=== PATIENT | male | born 1950 | race Caucasian/White ===

== ENCOUNTER → 2017-04-12 | Outpatient (CLI) | payer OTHER ==
[~2017-04-12] MED LIST: ASPI81TA21 PO; CHOL100027 PO; CLC100X PO; CMD/25 PO; FERR324T PO; FEXO1TAB46 PO; FISHOIL PO; FLAXSEED PO; GARLTAB3 PO; MULTIVITAMIN; SENN8.6T2 PO
--- NOTE | 2017-04-12 08:54 | DIAGNOSTIC IMAGING REPORT ---
LEFT FINGER(S) MIN 2 VIEWS CLINICAL HISTORY: LEFT 1ST DIGIT PAIN COMPARISON: Left first digit radiographs April 09, 2013. FINDINGS: Alignment of the left thumb is anatomic. There is no fracture or suspicious lesion. There is moderate to severe arthritis of the left first carpometacarpal joint. There is mild osteoarthritis of the interphalangeal and metacarpophalangeal joints of the left thumb. IMPRESSION: 1. No acute fracture. 2. 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 Electronically signed by: Darvin Brandon M.D. 04/12/2017 8:52 AM Dictated Date/Time: 04/12/2017 8:50 AM
--- NOTE | 2017-04-12 08:55 | DIAGNOSTIC IMAGING REPORT ---
RIGHT FINGER(S) MIN 2 VIEWS CLINICAL HISTORY: Bilateral thumb pain. COMPARISON: Right thumb radiographs April 09, 2013. FINDINGS: Alignment of the right thumb is anatomic. There is moderate osteoarthritis of the right first carpometacarpal joint and mild arthritis of the right first metacarpophalangeal and interphalangeal joints. There is no acute fracture. IMPRESSION: Moderate osteoarthritis of the right first carpometacarpal joint and mild arthritis of the interphalangeal and metacarpophalangeal joints of the right thumb. Electronically signed by: Darvin Brandon M.D. 04/12/2017 8:53 AM Dictated Date/Time: 04/12/2017 8:52 AM
== END | disposition home or self-care (01) ==
LOC: C.RDSM 08:39
PROVIDERS: ATTEND Physician Assistant
DX: M19.041 Primary osteoarthritis, right hand (principal); M19.042 Primary osteoarthritis, left hand; M18.0 Bilateral primary osteoarthritis of first carpometacarpal joints

== ENCOUNTER → 2017-05-10 | Outpatient (CLI) | payer OTHER ==
--- NOTE | 2017-05-10 09:41 | DIAGNOSTIC IMAGING REPORT ---
PELVIS 1 OR 2 VIEWS CLINICAL HISTORY: 66 years-old Male presenting with bilateral hip pain for 1 month, no known injury. TECHNIQUE: Single frontal view of the pelvis was obtained. COMPARISON: None. FINDINGS: An implanted medical anthropology director projects over the right lower quadrant. Bilateral hip joints congruent. No evidence of acute fracture or subluxation. No significant degenerative change or joint space loss is evident. Sacroiliac joints normal-appearing. Arcuate lines intact. Pubic symphysis congruent. Atherosclerosis is suggested. Remaining soft tissues within normal limits. IMPRESSION: No significant osseous abnormality of the pelvis. Electronically signed by: Jeff Morris M.D. 05/10/2017 9:40 AM Dictated Date/Time: 05/10/2017 9:38 AM
== END | disposition home or self-care (01) ==
LOC: C.RDSM 08:56
PROVIDERS: ATTEND Physician Assistant
DX: R10.2 Pelvic and perineal pain (principal)

== ENCOUNTER → 2017-08-09 | Outpatient (CLI) | payer OTHER | END | disposition home or self-care (01) | LOC: C.RDSM 07:30 | PROVIDERS: ATTEND Orthopaedic Surgery | DX: M25.551 Pain in right hip (principal); M25.552 Pain in left hip ==

== ENCOUNTER → 2018-01-03 | Outpatient (CLI) | payer OTHER ==
[~2018-01-03] MED LIST changes: +ALLO100T PO; +ASPI-319 PO; -ASPI81TA21 PO; +COEN1CAP32 PO; +FLAX1CAP11 PO; +GARL10007 PO; +METO25TA3 PO; +MULT-506 PO; +OMEG10007 PO; +RANI1TAB77 PO; +ROSU5TAB PO
== END | disposition home or self-care (01) ==
LOC: C.RDSM 13:36
PROVIDERS: ATTEND Orthopaedic Surgery
DX: M18.9 Osteoarthritis of first carpometacarpal joint, unspecified (principal)

== ENCOUNTER → 2018-01-30 | Day surgery (SDC) | payer OTHER ==
[2018-01-12 10:59] VITALS: Ht 180.3 cm; Wt 117.3 kg
[~2018-01-30] VITALS: Ht 180.3 cm; Wt 117.3 kg
[~2018-01-30] MED LIST changes: +ATROPINE SULFATE 0.1 MG/ML 5ML SYR IV PRN; -CHOL100027 PO; -CLC100X PO; +CLINDAMYCIN IV 900 MG in DEXTROSE 5% 50ML 44 ML IV SCH; +CLINDAMYCIN PHOS 150 MG/ML 2 ML VIAL ONE; -CMD/25 PO; +DEXAMETHASONE SOD INJ 4 MG/ML VIAL ONE; +EpHEDrine SULFATE INJ 50 MG/ML AMP IV PRN; +FENTANYL CITRATE INJ 50 MCG/1 ML 2 ML VIAL ONE; -FERR324T PO; -FEXO1TAB46 PO; -FISHOIL PO; -FLAXSEED PO; +FLUMAZENIL 0.1 MG/1 ML 10 ML VIAL IV PRN; -GARLTAB3 PO; +HYDROmorphone INJ 0.5 MG/0.5 ML SYR IV PRN; +LABETALOL HCL IV 5 MG/ML 20ML IV PRN; +LACTATED RINGER'S 1000ML 1,000 ML IV SCH; +LIDOCAINE HCL 2% 2 ML VIAL (20MG/ML) ONE; +METOCLOPRAMIDE HCL INJ 5 MG/ML 2 ML VIAL IV PRN; +MIDAZOLAM HCL 1 MG/ML 2ML VIAL ONE; -MULTIVITAMIN; +NALOXONE HCL 0.4 MG/1 ML VIAL/CARP IV PRN; +ONDANSETRON INJ 2 MG/ML 2 ML VIAL IV PRN; +ONDANSETRON INJ 2 MG/ML 2 ML VIAL ONE; +OXYCODONE/ACETAMINOPHEN 5-325 TAB PO PRN; +PROPOFOL IV EMULSION 10 MG/ML 20 ML VIAL ONE; +ROPIVACAINE 0.5% 5 MG/ML 30 ML VIAL ONE; -SENN8.6T2 PO; +SODIUM CHLORIDE 0.9% 1000ML 1,000 ML IV SCH; +SODIUM CHLORIDE 0.9% INJ 10 ML VIAL ONE; +THROMBIN 5000 UNITS KIT ONE; +TRANEXAMIC ACID 100 MG/ML 10 ML AMP IV ONE; +TRANEXAMIC ACID INJ 1,000 MG in SODIUM CHLORIDE 0.9% 100ML 100 ML IV SCH
--- NOTE | 2018-01-30 06:39 | History & Physical Bridge - [place] ---
H&P Re-Evaluation Bridge Note: I have examined the patient, reviewed the History & Physical and in the interval since the performance of the History & Physical I have noted the following changes of clinical significance: No changes noted
--- NOTE | 2018-01-30 08:49 | [facility] Post Operative Brief Note ---
Immediate Operative Summary Operative Date January 30, 2018. Pre-Operative Diagnosis Left Thumb Carpometacarpal Arthritis Post-Operative Diagnosis Same Procedure(s) Performed Left Thumb CarpoMetaCarpal Arthroplasty With Palmaris Longus Autograft Ligament Reconstruction Tendon Interposition Surgeon Dr. Nguyen Program Coordinator Executive Education Surgeon(s) Chaka Bose PA-C Estimated Blood Loss 10 ML Findings Consistent with Post-Op Diagnosis Fluids (cc crystalloids) 700 cc Specimens None Anesthesia Type General Regional Disposition Accompanied Pt To Recover: no Disposition: Recovery Room / PACU Overlapping Procedure I was present for: the critical portions of procedure. I was immediately available: during the entire case Back up surgeon: was not required during procedure
--- NOTE | 2018-01-30 08:51 | [facility] Operative Report ---
Operative Report Operative Date January 30, 2018. Pre-Operative Diagnosis Left Thumb Carpometacarpal Arthritis Post-Operative Diagnosis Same Procedure(s) Performed Left Thumb CarpoMetaCarpal Arthroplasty With Palmaris Longus Autograft Ligament Reconstruction Tendon Interposition Surgeon Dr. Nguyen Telemetry Registered Nurse Surgeon(s) Chaka Bose PA-C Estimated Blood Loss 10 ML Fluids 700 cc Specimens None Drains None Anesthesia Type General Regional Complication(s) none Disposition no Recovery Room / PACU Description of Procedure I was present during entire procedure. Please see Dr. Nguyen note for specifics of case. I attest to the content of the Intraoperative Record and any orders documented therein. Any exceptions are noted below.
--- NOTE | 2018-01-30 08:56 | Discharge Instructions ---
Discharge Instructions Date of Service January 30, 2018. Admission Reason for Admission: Left Thumbe Carpometacarpal Arthritis Discharge Discharge Diagnosis / Problem: Left thumb carpometacarpal arthritis Discharge Goals Goal(s): Decrease discomfort, Improve function, Increase independence Activity Recommendations Activity Limitations: as noted below Lifting Limitations: until after follow-up appointment (No lifting with left hand until instructed ) Exercise/Sports Limitations: until after follow-up appointment May Resume Sexual Activity: when tolerated Shower/Bathe: tomorrow, keep incision dry Driving or Machine Use: until cleared by child and family services specialist Weightbearing Status: Left non-weightbearing (Upper extremity) . Instructions / Follow-Up Instructions / Follow-Up Post-operative Instructions Dear Patient and Family/Friends, Before you are discharged from the hospital, it is important to know what to expect when you get home after surgery. To that end, we have created this sheet of discharge instructions which covers many commonly asked questions. Make sure you go through this sheet in its entirety with your nurse before you are discharged. Please note that we will go over the specifics of your surgery and recovery when you return for your first post-operative visit. Sincerely, Dr. Nguyen Pain Expect to be in a fair amount of pain after surgery. Remember, our goal is not to eliminate your pain, but to make it tolerable. It is a good idea to stay ahead of your pain by taking the medications you were prescribed once you get home. Typically, the pain starts improving 3-7 days after surgery. You should start weaning off the narcotic pain medication (oxycodone, hydrocodone, hydromorphone, morphine) as soon as your pain improves. Please call our office if your pain is not adequately controlled. Ice Ice your operative site at least 5 times a day for 15-30 minutes at a time. Make sure you have a thin cloth between the ice or cooling unit and your skin to prevent ontiveros bite. This is especially important if you received a nerve block. Continue icing your operative site for the first 5-7 days after surgery , then as needed. Diet/Nausea/Vomiting Start by drinking clear liquids and eating crackers. If you can tolerate this, then you may resume your normal diet. If you feel nauseated or vomit, take Zofran/ondansetron (if prescribed). Please call our office if you have intractable nausea or vomiting, or, if after hours, you may go to the Emergency Room for help. Constipation Constipation is a common side effect of narcotic pain medication. If you have not had a bowel movement within 2 days after surgery, we recommend purchasing an over the counter laxative such as Milk of Magnesia, Dulcolax, or Miralax from a local pharmacy, and taking it as instructed. Call our clinic if any questions. Slings and Braces If you were placed in a sling or brace, it must be worn at all times, including sleep. You may remove your sling or brace for physical therapy, home exercises , and showering. The length of time you will be in your brace and range of motion restrictions depends on what surgery you had; these details will be reviewed at your first post-operative appointment. Nerve block The anesthesia team sometimes places a nerve block to help with post-operative pain control. This results in significant numbness and inability to move the extremity. The nerve block usually wears off in 8-12 hours, but sometimes can last up to 24 hours. Please call our office if you are still unable to move your extremity after 24 hours, unless you received a pain pump to take home. Nerve blocks typically wear off quickly, so start taking pain medication as soon as you start feeling soreness near your surgical site. Weight bearing and Range of Motion. Do not bear any weight through your operative extremity immediately after surgery. If you had upper extremity surgery, do not lift anything with that arm. If you are in a knee brace, keep it locked in place until your follow-up. We will discuss your weight bearing, range of motion, and lifting restrictions in detail at your first post-operative appointment. Continuous Passive Motion (CPM) Machine If you were prescribed a CPM machine, it will start after your first post- operative appointment, at which time we will give you instructions on the range of motion settings and duration of treatment Physical therapy You will be given a prescription for physical therapy or occupational therapy at your first post-operative appointment. Typically, patients start therapy within 1 week of surgery Wound care and showering We will inspect your wound at your first post-operative visit, and may do a dressing change at that time. Most patients will be in a water-proof dressing that is removed 14 days after surgery. It is normal to see some dried blood on the dressing. Do not remove your dressing, paper strips or sutures yourself unless you are given permission. Showering is allowed the day after surgery. Do not scrub or remove any dressings. The wound should not be submerged underwater (i.e. in a bathtub or pool) until 4 weeks after surgery EMILY stockings If you were given white stockings, these are to be worn at all times except to shower (on both legs) for the first 2 weeks after surgery. Driving You may not drive while taking narcotic pain medication or while in a cast, splint, sling or brace. You, the patient, need to make the final determination about when you are safe to drive, however, the earliest you may consider driving after surgery is below: Hand/Wrist/Elbow Surgery: 3 days Shoulder Surgery: 2 weeks Hip,/Knee/Ankle Surgery: 4 weeks Fracture repair: 6 weeks Return to Work Your return to work depends on what surgery was done and what type of work you do. Please bring any paperwork your employer needs completed to your first post -operative visit. Also, bring a description of your job duties, as this helps us to understand what risks you may face at work. Travel Avoid long distance travel (greater than 1 hour) in airplanes and cars for the first 6 weeks after surgery. If you must travel, you need to have a Doppler ultrasound done before you travel to rule out a blood clot in your legs. Follow-up You should have a follow-up appointment already scheduled 1-2 days after surgery. If not, please contact our office to make this appointment before you leave the hospital. When to call the office It is normal to have swelling and bruising in the limb that was operated on. This will improve with time. It is also normal to have fevers for the first 2 days after surgery. Reasons you should call your doctor include: Uncontrolled pain; Nausea, vomiting, or constipation that does not improve with medication; Fevers over 101.5, chills, sweats; Drainage or bleeding from the wound; Foul odor; Spreading areas of redness; Any other concerns Current Hospital Diet Patient's current hospital diet: Discharge Diet Recommended Diet: Regular Diet Procedures Procedures Performed: Left Thumb CarpoMetaCarpal Arthroplasty With Palmaris Longus Autograft Ligament Reconstruction Tendon Interposition Pending Studies Studies pending at discharge: no Medical Emergencies . Who to Call and When: Medical Emergencies: If at any time you feel your situation is an emergency, please call 911 immediately. . Non-Emergent Contact Non-Emergency issues call your: Primary Care Provider Call Non-Emergent contact if: you have a fever, temperature is above 101.5, your pain is not controlled, your pain is worsening, wound has increased drainage, you have any medication questions . "Provider Documentation" section prepared by Alfonzo Bose. . [place] Drug Monitoring Program Search Results: patient reviewed within database, no issues identified, see additional documentation
[2018-01-30 09:42] VITALS: TEMP 36
--- NOTE | 2018-01-30 09:53 | Anesthesia Progress Nt - [facility] ---
Anesthesia Post Op Note Date & Time January 30, 2018 at 09:53 Vital Signs Pain Intensity: 8 Vital Signs Past 12 Hours Date Time Temp Pulse Resp B/P (MAP) Pulse Ox O2 Delivery O2 Flow Rate FiO2 01/30/18 09:42 36.0 57 18 176/84 (114) 96 Room Air 01/30/18 09:26 36.2 153/85 (122) 01/30/18 09:24 55 11 01/30/18 09:24 54 11 93 01/30/18 09:21 154/88 (107) 01/30/18 09:19 54 9 01/30/18 09:19 54 9 94 01/30/18 09:16 169/87 (111) 01/30/18 09:15 Room Air 01/30/18 09:14 62 12 97 01/30/18 09:14 60 12 01/30/18 09:11 163/86 (112) 01/30/18 09:09 59 16 01/30/18 09:09 61 16 96 01/30/18 09:06 179/87 (107) 01/30/18 09:04 60 14 84 01/30/18 09:04 29 14 01/30/18 09:01 118/103 (113) 01/30/18 08:59 65 12 01/30/18 08:59 66 12 98 01/30/18 08:56 171/95 (132) 01/30/18 08:54 70 17 01/30/18 08:54 70 17 94 01/30/18 08:52 165/90 (116) 01/30/18 08:49 36.1 70 16 165/90 96 Diffusion Mask 5 01/30/18 07:07 56 01/30/18 07:07 55 17 100 01/30/18 07:06 163/87 01/30/18 07:03 57 01/30/18 07:03 57 15 100 01/30/18 07:01 169/91 01/30/18 06:58 58 01/30/18 06:58 58 13 100 01/30/18 06:56 174/84 01/30/18 06:55 196/94 01/30/18 06:53 60 01/30/18 06:53 60 0 99 01/30/18 06:48 57 0 98 01/30/18 06:48 58 01/30/18 06:43 65 0 01/30/18 06:30 36.6 57 18 162/92 (115) 97 Room Air Notes Mental Status: alert / awake / arousable, participated in evaluation Pt Amnestic to Procedure: Yes Nausea / Vomiting: adequately controlled Pain: adequately controlled Airway Patency, RR, SpO2: stable & adequate BP & HR: stable & adequate Hydration State: stable & adequate Anesthetic Complications: no major complications apparent
--- NOTE | 2018-01-30 10:02 | OPERATIVE REPORT ---
DATE OF OPERATION: 01/30/2018 PREOPERATIVE DIAGNOSIS: Left CMC joint arthritis. POSTOPERATIVE DIAGNOSIS: Same. OPERATION PERFORMED: Left thumb CMC arthroplasty with palmaris longus autograft, ligament reconstruction, tendon interposition. SURGEON: Jeff Nguyen MD PIPED POCKET MACHINE OPERATOR: Chaka Bose. ESTIMATED BLOOD LOSS: 10 mL. IV FLUIDS: 700 mL crystalloid. IMPLANTS: None. SPECIMENS: None. COMPLICATIONS: None. INDICATIONS: Mr. Schroeder is a 67-year-old male who has had pain at the base of his left thumb. This has been refractory to conservative management including steroid injections, splinting, activity modification and others. X-rays were obtained demonstrating subluxation of the thumb metacarpal on the trapezium with joint space narrowing and osteophyte formation consistent with end-stage osteoarthritis. I had a long discussion with him about the risks and benefits of surgery, alternatives to surgery and expected outcomes. After reviewing all these, he elected to proceed with surgery. All questions were answered. Informed consent was signed. OPERATIVE FINDINGS: The patient had significant degenerative changes at the CMC joint with subluxation and peripheral osteophyte formation. The trapezium was excised and his volar ligament was reconstructed using palmaris longus autograft. DESCRIPTION OF THE OPERATION: The patient was identified in the preoperative holding area where the surgical site was marked. He was given a block by anesthesia and brought back to main operating room, was placed on the operating room table and general anesthesia was administered. All bony prominences were padded. Perioperative antibiotics were administered. He was prepped and draped in the normal sterile fashion. Prior to incision, a multidisciplinary timeout was called. All in the room were in agreement. I began by exsanguinating the limb with an Esmarch bandage. The tourniquet was inflated to 250 mmHg. An L-shaped incision was made along the junction of the glabrous palmar skin and the dorsal skin along the radial aspect of the thumb with the shorter leg of the L at the distal wrist crease for a total incision length of 4 cm. We dissected through the subcutaneous tissues maintaining meticulous hemostasis as he has a port-wine stain on this arm. We then identified a branch of the superficial radial nerve which was dissected out and protected throughout the case. We then incised between the abductor pollicis longus and the extensor pollicis brevis tendons. The radial artery was identified at the base of the wound and was protected throughout the case. We then incised through the capsule overlying the trapezium and subperiosteally dissected out the trapezium. The trapezium was then removed using a rongeur. The FCR was identified at the base of the wound. Next, the base of the thumb metacarpal was dissected subperiosteally to allow for a drill tunnel to be placed. A small slip of the APL was dissected off with this as well. We then harvested his palmaris longus through a 1 cm long incision at the proximal wrist crease. The tendon stripper was used to release the tendon proximally. The tendon was repaired with a knot in the muscular end which was secured with a 3-0 Ti-Cron. A drill hole was then placed through the base of the thumb metacarpal through which the tendon was passed. It was then looped around a slip of the APL as well as the FCR to create a spring type of configuration as well as reconstruct the volar oblique ligament of the thumb. The tendon was then sutured to itself with a 3-0 Ethibond. The slip of the APL was released, was sutured back to the tendinous knot at the base of the thumb metacarpal at its anatomic insertion. The capsule was then closed over the top of the ligament reconstruction tendon interposition using 3-0 Ti-Cron sutures. At this point, the tourniquet was let down. Meticulous hemostasis was again achieved. The skin was then closed with 4-0 nylon sutures in horizontal mattress fashion. He was placed into a radial thumb spica plaster splint with the thumb held in a resting naturally abducted position. He was then awoken from anesthesia and transferred to the recovery room in stable condition. POSTOPERATIVE COURSE: The patient will be discharged home from the recovery room. He will elevate his arm. He will be nonweightbearing on the left upper extremity for 6 weeks. He will transition to a removable thumb spica splint at his 2-week followup appointment, which he will wear for the subsequent 4-6 weeks. I attest to the content of the Intraoperative Record and any orders documented therein. Any exceptions are noted below. ANUEL
[2018-01-30 10:09] VITALS: BP 167/93; PULSE 61; O2SAT 96
== END | disposition home or self-care (01) ==
LOC: X.SURG 06:15
PROVIDERS: ATTEND Orthopaedic Surgery
DX: M18.12 Unilateral primary osteoarthritis of first carpometacarpal joint, left hand (principal); I25.10 Atherosclerotic heart disease of native coronary artery without angina pectoris; I71.4 Abdominal aortic aneurysm, without rupture; Z95.5 Presence of coronary angioplasty implant and graft; Z96.653 Presence of artificial knee joint, bilateral; K21.9 Gastro-esophageal reflux disease without esophagitis; M10.9 Gout, unspecified; I10 Essential (primary) hypertension; M54.5 Low back pain; G89.29 Other chronic pain; Z82.49 Family history of ischemic heart disease and other diseases of the circulatory system; Z83.3 Family history of diabetes mellitus; Z88.1 Allergy status to other antibiotic agents; Z79.82 Long term (current) use of aspirin; Z88.0 Allergy status to penicillin; Z87.891 Personal history of nicotine dependence

== ENCOUNTER → 2018-04-05 | Outpatient (CLI) | payer OTHER ==
[~2018-04-05] MED LIST changes: -ATROPINE SULFATE 0.1 MG/ML 5ML SYR IV PRN; -CLINDAMYCIN IV 900 MG in DEXTROSE 5% 50ML 44 ML IV SCH; -CLINDAMYCIN PHOS 150 MG/ML 2 ML VIAL ONE; -DEXAMETHASONE SOD INJ 4 MG/ML VIAL ONE; -EpHEDrine SULFATE INJ 50 MG/ML AMP IV PRN; -FENTANYL CITRATE INJ 50 MCG/1 ML 2 ML VIAL ONE; -FLUMAZENIL 0.1 MG/1 ML 10 ML VIAL IV PRN; -HYDROmorphone INJ 0.5 MG/0.5 ML SYR IV PRN; -LABETALOL HCL IV 5 MG/ML 20ML IV PRN; -LACTATED RINGER'S 1000ML 1,000 ML IV SCH; -LIDOCAINE HCL 2% 2 ML VIAL (20MG/ML) ONE; -METOCLOPRAMIDE HCL INJ 5 MG/ML 2 ML VIAL IV PRN; -MIDAZOLAM HCL 1 MG/ML 2ML VIAL ONE; -NALOXONE HCL 0.4 MG/1 ML VIAL/CARP IV PRN; -ONDANSETRON INJ 2 MG/ML 2 ML VIAL IV PRN; -ONDANSETRON INJ 2 MG/ML 2 ML VIAL ONE; -OXYCODONE/ACETAMINOPHEN 5-325 TAB PO PRN; -PROPOFOL IV EMULSION 10 MG/ML 20 ML VIAL ONE; -ROPIVACAINE 0.5% 5 MG/ML 30 ML VIAL ONE; -SODIUM CHLORIDE 0.9% 1000ML 1,000 ML IV SCH; -SODIUM CHLORIDE 0.9% INJ 10 ML VIAL ONE; -THROMBIN 5000 UNITS KIT ONE; -TRANEXAMIC ACID 100 MG/ML 10 ML AMP IV ONE; -TRANEXAMIC ACID INJ 1,000 MG in SODIUM CHLORIDE 0.9% 100ML 100 ML IV SCH
--- NOTE | 2018-04-05 08:19 | DIAGNOSTIC IMAGING REPORT ---
R FINGER(S) MIN 2 VIEWS HISTORY: 67 years-old Male RIGHT THUMB PAIN acute pain of the right thumb COMPARISON: None available TECHNIQUE: 3 views of the right thumb FINDINGS: Moderate to severe osteoarthritis about the first carpal metacarpal joint. Triscaphe degenerative changes are also present. 3 mm corticated bone fragment lateral to the mid pole scaphoid suggests remote fracture fragment or fragmented osteophyte. At least moderate joint space narrowing with osteophytosis involves the second metacarpal phalangeal joint. Mild metacarpal phalangeal and interphalangeal osteoarthritis about the first digit. Mild soft tissue swelling about the first metacarpal. No acute fracture or dislocation. IMPRESSION: 1. No acute fracture or dislocation. 2. Degenerative changes as above including moderate to severe osteoarthritis of the first carpal metacarpal joint. The above report was generated using voice recognition software. It may contain grammatical, syntax or spelling errors. Electronically signed by: Rick Rueda M.D. 04/05/2018 8:17 AM Dictated Date/Time: 04/05/2018 8:14 AM
== END | disposition home or self-care (01) ==
LOC: C.RDSM 07:34
PROVIDERS: ATTEND Physician Assistant
DX: M19.041 Primary osteoarthritis, right hand (principal); M79.644 Pain in right finger(s)

== ENCOUNTER → 2018-04-24 | Day surgery (SDC) | payer OTHER ==
[2018-04-17 15:09] VITALS: Ht 179.1 cm; Wt 115.9 kg
[~2018-04-24] VITALS: Ht 179.1 cm; Wt 115.9 kg
[~2018-04-24] MED LIST changes: +ATROPINE SULFATE 0.1 MG/ML 5ML SYR IV PRN; +BUPIVACAINE 0.5 % 5 MG/1 ML PF 10ML VIAL ONE; +CLINDAMYCIN PHOS 150 MG/ML 2 ML VIAL IV SCH; +CYAN100073 PO; +DEXAMETHASONE SOD INJ 4 MG/ML VIAL ONE; +EpHEDrine SULFATE INJ 50 MG/ML AMP IV PRN; +FENTANYL CITRATE INJ 50 MCG/1 ML 2 ML VIAL IV PRN; +FENTANYL CITRATE INJ 50 MCG/1 ML 2 ML VIAL ONE; +HYDROmorphone INJ 1 MG/ML SYR IV PRN; +LACTATED RINGER'S 1000ML 1,000 ML IV SCH; +LIDOCAINE HCL 1% 20 ML VIAL ONE; +LIDOCAINE HCL 2% 2 ML VIAL (20MG/ML) ONE; +METOCLOPRAMIDE HCL INJ 5 MG/ML 2 ML VIAL IV PRN; +MIDAZOLAM HCL 1 MG/ML 2ML VIAL ONE; +ONDANSETRON INJ 2 MG/ML 2 ML VIAL IV PRN; +ONDANSETRON INJ 2 MG/ML 2 ML VIAL ONE; +OXYCODONE/ACETAMINOPHEN 5-325 TAB PO PRN; +PHENYLEPHRINE 100MCG/ML 5ML SYR IV PRN; +PROMETHAZINE HCL INJ 12.5 MG in SODIUM CHLORIDE 0.9% 50ML 50 ML IV PRN; +PROPOFOL IV EMULSION 10 MG/ML 20 ML VIAL ONE; +ROPIVACAINE 0.5% 5 MG/ML 30 ML VIAL ONE; +SODIUM CHLORIDE 0.9% 1000ML 1,000 ML IV SCH
--- NOTE | 2018-04-24 08:45 | [facility] Post Operative Brief Note ---
Immediate Operative Summary Operative Date Apr 24, 2018. Pre-Operative Diagnosis RIGHT THUMB CARPOMETACARPAL ARTHRITIS Post-Operative Diagnosis SAME PREOP Procedure(s) Performed Right Thumb Carpometacarpal Arthroplasty With Ligament Reconstruction, Tendon Interposition With Palmaris Longus Autograft Surgeon DR. Scottie HANNA Candy Counter Clerk Surgeon(s) TAYLOR VELAZCO PA-C Estimated Blood Loss 1 cc Findings Consistent with Post-Op Diagnosis Fluids (cc crystalloids) 850 cc Specimens NONE Anesthesia Type General Regional Complication(s) none Disposition Accompanied Pt To Recover: no Disposition: Recovery Room / PACU
--- NOTE | 2018-04-24 08:51 | [facility] Operative Report ---
Operative Report Operative Date Apr 24, 2018. Pre-Operative Diagnosis RIGHT THUMB CARPOMETACARPAL ARTHRITIS Post-Operative Diagnosis SAME PREOP Procedure(s) Performed Right Thumb Carpometacarpal Arthroplasty With Ligament Reconstruction, Tendon Interposition With Palmaris Longus Autograft Surgeon DR. Scottie HANNA Manager Fashion Surgeon(s) TAYLOR VELAZCO PA-C Estimated Blood Loss 1 cc Fluids 850 cc Specimens NONE Drains None Anesthesia Type General Regional Complication(s) none Disposition no Recovery Room / PACU Description of Procedure I was present during the entire case and assisted with wound closure and splint application. Please see Dr. Hanna procedure note for specifics of the case. I attest to the content of the Intraoperative Record and any orders documented therein. Any exceptions are noted below.
--- NOTE | 2018-04-24 08:55 | Discharge Instructions ---
Discharge Instructions Date of Service Apr 24, 2018. Admission Reason for Admission: Right Thumb Carpometacarpal Arthritis Discharge Discharge Diagnosis / Problem: Right thumb carpometacarpal arthritis Discharge Goals Goal(s): Decrease discomfort, Improve function, Increase independence Activity Recommendations Activity Limitations: as noted below Lifting Limitations: until after follow-up appointment Exercise/Sports Limitations: until after follow-up appointment May Resume Sexual Activity: when tolerated Shower/Bathe: tomorrow, keep incision dry Driving or Machine Use: No driving until cleared by dot compliance specialist Weightbearing Status: Right non-weightbearing . Instructions / Follow-Up Instructions / Follow-Up Post-operative Instructions Dear Patient and Family/Friends, Before you are discharged from the hospital, it is important to know what to expect when you get home after surgery. To that end, we have created this sheet of discharge instructions which covers many commonly asked questions. Make sure you go through this sheet in its entirety with your nurse before you are discharged. Please note that we will go over the specifics of your surgery and recovery when you return for your first post-operative visit. Sincerely, Dr. Nguyen Pain Expect to be in a fair amount of pain after surgery. Remember, our goal is not to eliminate your pain, but to make it tolerable. It is a good idea to stay ahead of your pain by taking the medications you were prescribed once you get home. Typically, the pain starts improving 3-7 days after surgery. You should start weaning off the narcotic pain medication (oxycodone, hydrocodone, hydromorphone, morphine) as soon as your pain improves. Please call our office if your pain is not adequately controlled. Ice Ice your operative site at least 5 times a day for 15-30 minutes at a time. Make sure you have a thin cloth between the ice or cooling unit and your skin to prevent ontiveros bite. This is especially important if you received a nerve block. Continue icing your operative site for the first 5-7 days after surgery , then as needed. Diet/Nausea/Vomiting Start by drinking clear liquids and eating crackers. If you can tolerate this, then you may resume your normal diet. If you feel nauseated or vomit, take Zofran/ondansetron (if prescribed). Please call our office if you have intractable nausea or vomiting, or, if after hours, you may go to the Emergency Room for help. Constipation Constipation is a common side effect of narcotic pain medication. If you have not had a bowel movement within 2 days after surgery, we recommend purchasing an over the counter laxative such as Milk of Magnesia, Dulcolax, or Miralax from a local pharmacy, and taking it as instructed. Call our clinic if any questions. Slings and Braces If you were placed in a sling or brace, it must be worn at all times, including sleep. You may remove your sling or brace for physical therapy, home exercises , and showering. The length of time you will be in your brace and range of motion restrictions depends on what surgery you had; these details will be reviewed at your first post-operative appointment. Nerve block The anesthesia team sometimes places a nerve block to help with post-operative pain control. This results in significant numbness and inability to move the extremity. The nerve block usually wears off in 8-12 hours, but sometimes can last up to 24 hours. Please call our office if you are still unable to move your extremity after 24 hours, unless you received a pain pump to take home. Nerve blocks typically wear off quickly, so start taking pain medication as soon as you start feeling soreness near your surgical site. Weight bearing and Range of Motion. Do not bear any weight through your operative extremity immediately after surgery. If you had upper extremity surgery, do not lift anything with that arm. If you are in a knee brace, keep it locked in place until your follow-up. We will discuss your weight bearing, range of motion, and lifting restrictions in detail at your first post-operative appointment. Continuous Passive Motion (CPM) Machine If you were prescribed a CPM machine, it will start after your first post- operative appointment, at which time we will give you instructions on the range of motion settings and duration of treatment Physical therapy You will be given a prescription for physical therapy or occupational therapy at your first post-operative appointment. Typically, patients start therapy within 1 week of surgery Wound care and showering We will inspect your wound at your first post-operative visit, and may do a dressing change at that time. Most patients will be in a water-proof dressing that is removed 14 days after surgery. It is normal to see some dried blood on the dressing. Do not remove your dressing, paper strips or sutures yourself unless you are given permission. Showering is allowed the day after surgery. Do not scrub or remove any dressings. The wound should not be submerged underwater (i.e. in a bathtub or pool) until 4 weeks after surgery EMILY stockings If you were given white stockings, these are to be worn at all times except to shower (on both legs) for the first 2 weeks after surgery. Driving You may not drive while taking narcotic pain medication or while in a cast, splint, sling or brace. You, the patient, need to make the final determination about when you are safe to drive, however, the earliest you may consider driving after surgery is below: Hand/Wrist/Elbow Surgery: 3 days Shoulder Surgery: 2 weeks Hip,/Knee/Ankle Surgery: 4 weeks Fracture repair: 6 weeks Return to Work Your return to work depends on what surgery was done and what type of work you do. Please bring any paperwork your employer needs completed to your first post -operative visit. Also, bring a description of your job duties, as this helps us to understand what risks you may face at work. Travel Avoid long distance travel (greater than 1 hour) in airplanes and cars for the first 6 weeks after surgery. If you must travel, you need to have a Doppler ultrasound done before you travel to rule out a blood clot in your legs. Follow-up You should have a follow-up appointment already scheduled 1-2 days after surgery. If not, please contact our office to make this appointment before you leave the hospital. When to call the office It is normal to have swelling and bruising in the limb that was operated on. This will improve with time. It is also normal to have fevers for the first 2 days after surgery. Reasons you should call your doctor include: Uncontrolled pain; Nausea, vomiting, or constipation that does not improve with medication; Fevers over 101.5, chills, sweats; Drainage or bleeding from the wound; Foul odor; Spreading areas of redness; Any other concerns Current Hospital Diet Patient's current hospital diet: Discharge Diet Recommended Diet: Regular Diet Procedures Procedures Performed: Right Thumb Carpometacarpal Arthroplasty With Ligament Reconstruction, Tendon Interposition With Palmaris Longus Autograft Pending Studies Studies pending at discharge: no Medical Emergencies . Who to Call and When: Medical Emergencies: If at any time you feel your situation is an emergency, please call 911 immediately. . Non-Emergent Contact Non-Emergency issues call your: Primary Care Provider Call Non-Emergent contact if: you have a fever, temperature is above 101.5, your pain is not controlled, your pain is worsening, wound has increased drainage, you have any medication questions . "Provider Documentation" section prepared by Alfonzo Bose. . [place] Drug Monitoring Program Search Results: patient reviewed within database, no issues identified, see additional documentation
--- NOTE | 2018-04-24 09:51 | OPERATIVE REPORT ---
DATE OF OPERATION: 04/24/2018 PREOPERATIVE DIAGNOSIS: Right thumb CMC joint osteoarthritis. POSTOPERATIVE DIAGNOSIS: Right thumb CMC joint osteoarthritis. OPERATION PERFORMED: Right thumb CMC arthroplasty with ligament reconstruction, tendon interposition using palmaris longus autograft. SURGEON: Jeff Nguyen MD SIGNAL MECHANIC: Chaka Bose PA-C. ESTIMATED BLOOD LOSS: 1 mL. SPECIMENS: None. COMPLICATIONS: None. IMPLANTS: None. INDICATIONS: Mr. Schroeder is a 67-year-old gentleman who is status post a left thumb CMC arthroplasty with ligament reconstruction, tendon interposition several months ago with a good result. He has similar symptoms on the right side with x-ray findings showing [id number] osteoarthritis with subluxation of the thumb metacarpal and the trapezium. Physical exam is consistent with this with tenderness at the CMC joint and early thumb adduction contracture. I had a long discussion with him about the risks and benefits of surgery, alternatives to surgery and expected outcomes. After reviewing all these, he elected to proceed with surgery. All questions were answered. Informed consent was signed. OPERATIVE FINDINGS: The palmaris longus was harvested using a tendon stripper at the level of the wrist and was used to perform a ligament reconstruction after removing the trapezium. DESCRIPTION OF PROCEDURE: The patient was identified in the preoperative holding area where his surgical site was marked. He was given a nerve block by anesthesia and brought back to the main operating room where he was placed on the operating room table and general anesthesia was administered. All bony prominences were padded. Perioperative antibiotics were administered. He was prepped and draped in normal sterile fashion. Prior to incision, a multidisciplinary timeout was called. All in the room were in agreement. We began by exsanguinating the limb with an Esmarch bandage. Tourniquet was inflated to 250 mmHg. Total tourniquet time for the case was 74 minutes. An L-shaped incision was made with the long end of L along the border between the glabrous skin and the normal skin with the shorter part of the L incision measuring 1 cm at the level of the distal wrist crease. We dissected down through subcutaneous tissues, identifying branch of the superficial radial nerve, which was protected throughout the case. The extensor pollicis brevis was identified as well as the APL. We incised the fascia between these 2 tendons. We then dissected out the radial artery and associated venous branches which were protected throughout the case. Then using electrocautery, we made a longitudinal incision at the midpoint of the metacarpal extending over the trapezium to the level of the scaphoid. Full thickness subperiosteal flaps were raised to expose the trapezium. The trapezium was then excised using a rongeur. A 3.6 mm drill was then used to drill a hole towards the base of the thumb metacarpal at the insertion of the volar oblique ligament. We then made a 1 cm incision overlying his palmaris longus at the level of the proximal wrist crease. The tendon was identified and brought out through the wound with a right angle clamp. It was then released distally with the wrist in flexion to maximize the tendon length. It was secured with a 4-0 Ethibond suture. A tendon stripper was then used to release the tendon proximally. The musculotendinous junction was cleared of any muscle fibers. A knot was tied and the tendon secured with 3-0 Ti-Cron sutures. We then passed the Ethibond sutures down through the drill tunnel and used this to pull the tendon through the thumb metacarpal with a knot of tendon at the radial surface of the thumb functioning as a button. We then looped the Ethibond around the dorsal ulnar aspect of the FCR and around a slip of the APL which had been dissected out. This was done in a second time for tendon interposition and then the tendon was secured to itself using 3-0 Ti-Cron sutures x3. Excellent fixation was obtained. Excess tendon was cut and discarded. The capsule was then closed with 3-0 Ti-Cron sutures. The wound was irrigated with normal saline. Wound was then closed with 4-0 Ethibond sutures using horizontal mattress sutures. Steri-Strips were applied followed by 2 x 2s and Tegaderms. He was placed into a radial thumb spica splint with the thumb held in abduction. He was awoken from anesthesia and transferred to the recovery room in stable condition. Of note, we did inject 8 mL of 0.5% Marcaine into his wounds for postoperative pain control. POSTOPERATIVE COURSE: The patient will be discharged home from the recovery room. He will keep the splint on for 2 weeks. He will follow up in my clinic in 2 weeks for splint removal, suture removal and placement into a removable thumb spica splint custom molded by our physical therapist. I attest to the content of the Intraoperative Record and any orders documented therein. Any exception s are noted below.
[2018-04-24 09:52] VITALS: BP 155/78; O2SAT 95
--- NOTE | 2018-04-24 09:57 | Anesthesia Progress Nt - [facility] ---
Anesthesia Post Op Note Date & Time Apr 24, 2018 at 09:57 Vital Signs Pain Intensity: 3 Vital Signs Past 12 Hours Date Time Temp Pulse Resp B/P (MAP) Pulse Ox O2 Delivery O2 Flow Rate FiO2 04/24/18 09:52 52 18 155/78 (103) 95 Room Air 04/24/18 09:38 36.3 47 18 162/85 (110) 94 Room Air 04/24/18 09:18 51 17 93 04/24/18 09:18 51 17 04/24/18 09:16 139/76 04/24/18 09:13 53 14 93 04/24/18 09:13 53 14 04/24/18 09:12 36.0 93 Room Air 04/24/18 09:12 57 21 91 04/24/18 09:12 57 21 04/24/18 09:11 171/94 04/24/18 09:07 55 19 04/24/18 09:07 56 19 165/86 95 04/24/18 09:02 56 17 04/24/18 09:02 54 17 100 04/24/18 09:01 151/86 04/24/18 09:01 151/86 04/24/18 08:59 56 15 100 04/24/18 08:59 55 15 04/24/18 08:59 55 15 04/24/18 08:59 56 15 100 04/24/18 08:56 155/88 04/24/18 08:56 155/88 04/24/18 08:54 61 18 100 04/24/18 08:54 60 18 04/24/18 08:54 61 18 100 04/24/18 08:54 60 18 04/24/18 08:51 153/93 04/24/18 08:51 153/93 04/24/18 08:50 164/94 04/24/18 08:50 164/94 04/24/18 08:49 36.2 60 16 164/94 98 Mask 10 04/24/18 07:09 0 04/24/18 07:09 0 04/24/18 07:08 0 04/24/18 07:03 49 04/24/18 07:03 49 14 98 04/24/18 07:01 127/70 04/24/18 06:58 54 04/24/18 06:58 55 13 98 04/24/18 06:56 148/84 04/24/18 06:53 56 13 100 04/24/18 06:53 55 13 04/24/18 06:52 181/89 04/24/18 06:27 36.9 56 20 168/88 (114) 99 Room Air Notes Mental Status: alert / awake / arousable, participated in evaluation Pt Amnestic to Procedure: Yes Nausea / Vomiting: adequately controlled Pain: adequately controlled Airway Patency, RR, SpO2: stable & adequate BP & HR: stable & adequate Hydration State: stable & adequate Anesthetic Complications: no major complications apparent
== END | disposition home or self-care (01) ==
LOC: X.SURG 06:12
PROVIDERS: ATTEND Orthopaedic Surgery
DX: M18.9 Osteoarthritis of first carpometacarpal joint, unspecified (principal); M79.641 Pain in right hand; M10.9 Gout, unspecified; I10 Essential (primary) hypertension; M19.90 Unspecified osteoarthritis, unspecified site; I25.10 Atherosclerotic heart disease of native coronary artery without angina pectoris; E78.5 Hyperlipidemia, unspecified; K21.9 Gastro-esophageal reflux disease without esophagitis; E66.9 Obesity, unspecified; Z87.891 Personal history of nicotine dependence; Z79.82 Long term (current) use of aspirin; Z95.5 Presence of coronary angioplasty implant and graft; Z88.1 Allergy status to other antibiotic agents

== ENCOUNTER 2022-03-18 06:37 | Observation (INO) ==
--- NOTE | 2022-03-01 14:47 | PAT Medication Instructions ---
Medication Instructions Date of Service March 01, 2022 Home Medications allopurinol 100 mg tablet 100 mg PO QAM apple cider vinegar 600 mg capsule 1,200 mg PO BID aspirin 81 mg capsule 81 mg PO QAM cholecalciferol (vitamin D3) 125 mcg (5,000 unit) tablet (Vitamin D3) 125 mcg PO QAM coenzyme Q10 100 mg capsule (Co Q-10) 100 mg PO PM cranberry 500 mg capsule 500 mg PO PM cyanocobalamin (vitamin B-12) 500 mcg tablet 500 mcg PO QAM garlic 1,000 mg capsule 1,000 mg PO PM losartan 25 mg tablet 25 mg PO PM multivitamin 1 tab PO QAM omega-3 fatty acids 1,000 mg PO PM rosuvastatin 10 mg tablet (Crestor) 10 mg PO PM zinc 100 mg tablet 50 mg PO QAM STOP taking 2 weeks before surgery (or as soon as possible if surgery is within 2 weeks) apple cider vinegar 600 mg capsule 1,200 mg PO BID coenzyme Q10 100 mg capsule (Co Q-10) 100 mg PO PM cranberry 500 mg capsule 500 mg PO PM garlic 1,000 mg capsule 1,000 mg PO PM omega-3 fatty acids 1,000 mg PO PM DO NOT take the morning of surgery cholecalciferol (vitamin D3) 125 mcg (5,000 unit) tablet (Vitamin D3) 125 mcg PO QAM cyanocobalamin (vitamin B-12) 500 mcg tablet 500 mcg PO QAM multivitamin 1 tab PO QAM zinc 100 mg tablet 50 mg PO QAM Take morning of surgery With a small sip of water, OTHERWISE NOTHING TO EAT OR DRINK AFTER MIDNIGHT: allopurinol 100 mg tablet 100 mg PO QAM aspirin 81 mg capsule 81 mg PO QAM (continue as normal unless told otherwise by surgeon) Take evening before surgery losartan 25 mg tablet 25 mg PO PM rosuvastatin 10 mg tablet (Crestor) 10 mg PO PM Other Notes If you have any questions please call us at [phone] or [phone] or [phone] or [phone]
--- NOTE | 2022-03-03 12:30 | Anesthesiology Consultation ---
Date of Service March 03, 2022 Assessment & Plan (1) Encounter for pre-operative examination: - cardio 02/25/22: "...cardiac clearance for surgery...EKG interpreted by me showing NSR, low voltage...left hip replacement...mild orthostasis with changing positions too quickly...03/2020 XST...negative for ischemia...coronary artery disease-with 3 vessel CABG (COOPER-LAD, SVG DIAG/OM) in 2012...cleared for proposed orthopedic surgery...not stop his ASA preop...AAA continue aspirin, statin risk factor modification..." - spinal cord stimulator: pt aware to bring remote DOS. - COVID screening: Per assessment on 03/03/2022: Travel screen negative, no known COVID-19 positive contacts or current COVID-19 related symptoms in past 2 weeks. Pt vaccinated. Surgeon arranging preop COVID testing, scheduled 03/16/2022. Awaiting results. Chart Review Chart Review: Acceptable Risk for Surgery and Patient seen in Pre Admission Testing Teaching & Discussion Pre-Anesthesia Teaching/Discussion Notes: Instructed NPO after midnight before surgery, except medications with 15 cc of water. Medication instructions provided according to the PAT guidelines. History Surgery Operation Date: 03/18/22 09:00 Proposed Procedures p Left Total Hip Arthroplasty - Jeff Nguyen MD Height/Weight Height: 5 ft 10 in Weight: 120.7 kg Allergies Allergy/AdvReac Type Severity Reaction Status Date / Time amoxicillin AdvReac Intermediate N/V Verified 03/01/22 12:30 Medications Home Medications Medication Instructions Recorded Confirmed Last Taken allopurinol 100 mg tablet 100 mg PO QAM 09/25/21 03/01/22 10/11/21 apple cider vinegar 600 mg capsule 1,200 mg PO BID 09/25/21 03/01/22 10/11/21 aspirin 81 mg capsule 81 mg PO QAM 09/25/21 03/01/22 10/11/21 cholecalciferol (vitamin D3) 125 125 mcg PO QAM 09/25/21 03/01/22 10/11/21 mcg (5,000 unit) tablet (Vitamin D3) coenzyme Q10 100 mg capsule (Co 100 mg PO PM 01/07/22 06/13/22 01/23/22 Q-10) cranberry 500 mg capsule 500 mg PO PM 09/25/21 03/01/22 10/11/21 cyanocobalamin (vitamin B-12) 500 500 mcg PO QAM 09/25/21 03/01/22 10/11/21 mcg tablet garlic 1,000 mg capsule 1,000 mg PO PM 09/25/21 03/01/22 10/11/21 losartan 25 mg tablet 25 mg PO PM 09/25/21 03/01/22 10/11/21 multivitamin 1 tab PO QAM 09/25/21 03/01/22 10/11/21 omega-3 fatty acids 1,000 mg PO PM 09/25/21 03/01/22 10/11/21 rosuvastatin 10 mg tablet (Crestor) 10 mg PO PM 09/25/21 03/01/22 10/11/21 zinc 100 mg tablet 50 mg PO QAM 09/25/21 03/01/22 10/11/21 Past Medical History Medical History (Updated 03/03/22 @ 14:58 by Rosy Hodgson PA-C) Aortic aneurysm 3.7cm > monitored by Dr. Vega in [place] CAD (coronary artery disease) s/p CABG x 3 in 2010, follows with Dr. Vega Degenerative disc disease Diverticular disease last diverticulitis episode 8 yrs ago Hx of gout Hyperlipidemia Hypertension controlled, stable per pt with home readings 120-130/80s consistently; has white coat HTN PVC (premature ventricular contraction) Spinal cord stimulator status instructed to bring controller DOS Patient denies h/o stroke, seizures, heart attack, heart failure, DM, blood clots or blood transfusions. Exercise / Class Metabolic Activity II 4-5 Yardwork/Stairs/Walk up hill (denies CP or SOB with 1 FOS) Past Surgical History Surgical History H/O umbilical hernia repair History of cardiac cath Jul 2011 > no stents--CABG x 3. History of cataract surgery bilat History of colonoscopy History of tooth extraction History of total knee replacement bilat Hx of repair of right rotator cuff 10/12/21: LMA#5 + PNB. Hx of thumb surgery bilat trigger finger releases S/P tendon repair left foot S/P triple vessel bypass Jul 2011 [facility] Past Anesthesia History No Hx of Anesthesia Complications and No Family Hx of Anesthesia Complications History of PONV No Hx of PONV and No Hx of Motion Sickness Social History Smoking Status: Never smoker Do You Dip or Chew Tobacco: No Hx Alcohol Use: Yes alcohol intake frequency: 3 or more drinks per day Hx Substance Use: No substance use type: does not use Review of Systems Patient denies chest pain, shortness of breath, dyspnea on exertion, snoring, witnessed apneas-neg sleep study 5 yrs ago per pt, reflux, fever, chills, cough, wheezing, or palpitations. Physical Exam Vital Signs Vitals BP 164/80 manual, (pt states home readings are consistently 120-130/80s at home, has white coat hypertension) P 67 TEMP 98.1 SP02 98% on RA RESP 17 Physical Full cervical extension range of motion without pain TMD 3.5 finger breaths Mallampati Score 3 Dentition: intact, several missing teeth, lower front plate and upper front partial, 4 caps in front; denies chipped teeth Lungs: normal respiratory effort. Clear throughout to auscultation, no adventitious breath sounds Cardiac: regular rate and rhythm, no murmurs noted Carotid arteries: negative bruit bilat Lab Results Anesthesia Preop Results Results Anesthesia Widget: WBC 6.82 K/uL (4.8-10.8) 03/03/22 Hgb 13.2 g/dL (14.0-18.0) L 03/03/22 Hct 40.1 % (42-52) L 03/03/22 Plt 225 K/uL (130-400) 03/03/22 Na 139 mmol/L (136-145) 03/03/22 K 4.0 mmol/L (3.5-5.1) 03/03/22 Cl 102 mmol/L (98-107) 03/03/22 CO2 28 mmol/L (21-32) 03/03/22 BUN 13 mg/dl (6-23) 03/03/22 Creat 0.86 mg/dl (0.6-1.4) 03/03/22 Glucose Level 98 mg/dl (70-99(Fasting)) 03/03/22 PT 12.5 Seconds (9.0-12.0) H 03/03/22 PTT 28.3 Seconds (21.0-31.0) 03/03/22 INR 1.2 (0.9-1.1) H 03/03/22 HA1c 5.5 % (4.5-5.6) 03/03/22 Urine Color Yellow 03/03/22 Urine Appearance Clear (Clear) 03/03/22 Urine pH 5.5 (4.5-7.5) 03/03/22 Urine Specific [place] 1.021 (1.000-1.030) 03/03/22 Urine Protein Negative (Negative) 03/03/22 Urine Glucose (UA) Negative (Negative) 03/03/22 Urine Ketones Negative (Negative) 03/03/22 Urine Blood Negative (Negative) 03/03/22 Urine Nitrite Negative (Negative) 03/03/22 Urine Bilirubin Negative (Negative) 03/03/22 Urine Urobilinogen Negative (Negative) 03/03/22 Urine Leukocyte Esterase Negative (Negative) 03/03/22 Blood Type O Positive 03/03/22 Antibody Screen NEGATIVE 03/03/22 Testing Electrocardiogram Date: 10/01/21 Sinus bradycardia, rate 58 bpm RSR' or QR pattern in V1 suggests right ventricular conduction delay Echocardiogram Date: 03/27/20 EF 60% Normal contractility of wall segments Mild pulmonic regurgitation RVSP 27 mmHg Stress Test Unable to interpret d/t poor copy. Negative for ischemia per cardiology pre-op clearance. Other Testing vascular duplex 03/16/21 Infrarenal AAA 3.6 cm x 3.7 cm
--- NOTE | 2022-03-05 09:50 | History & Physical Report ---
Date of Service March 05, 2022 Assessment & Plan (1) Osteoarthritis of left hip: Plan: PRE-OP Diagnosis: Left hip osteoarthritis Planned Procedure: Left total hip arthroplasty Plan: Patient is scheduled to undergo this procedure at the [facility] with a 23-hour observation admission with Dr. Nguyen on March 18, 2022. Risks and complications of the procedure such as: Infection, bleeding, pain, scarring, nerve blood vessel damage, weakness, wound problems, stiffness, incomplete relief of symptoms, Hardware failure, hardware loosening, wear, fracture, tendon or ligament injury, dislocation, leg length inequality, blood clots, embolism, heart attack, stroke and were explained to the patient at his visit today. Informed consent to perform the procedure was obtained. Patient also understands risks of proceeding with surgical invention during the COVID-19 pandemic. Currently he is asymptomatic and understands that he will need to be tested prior to surgery. Patient is scheduled to meet with anesthesia later this afternoon and while there he will obtain a CBC with differential, complete metabolic panel, PT/INR, blood type and screen, urinalysis, urine culture and sensitivity, a hemoglobin A1c and a nasal culture for MRSA. His EKG is up-to-date. We have received preoperative cardiac clearance from his java tech lead/vascular surgeon Dr. Jarvis. He is scheduled to meet with his primary care provider later this week for clearance. During today's visit we reviewed total hip precautions. We reviewed the total hip packet. Patient states that he has a walker he will bring with him on the day of procedure. He states that he has shower chair and a raised toilet seat and thinks that he has all the necessary things that are included in a hip kit. I advised him that he will be discharged from the hospital on some narcotic pain medication and some anti-inflammatory medication. Patient was advised by his java tech lead not to stop his daily aspirin. We will have him increase it to twice daily for the first 30 days postoperatively for blood clot prevention. Patient states that he plans on doing in-home physical therapy for the first 2 weeks postoperatively with [facility] home care. At his 2-week visit we will d iscuss outpatient physical therapy options and provide him with a rehab protocol. He is scheduled to see me for the 2-week postoperative follow-up visit on April 02 at 2 PM. History of Present Illness Chief Complaint: Chief Complaint: Left hip pain Primary Care Provider: Francis Ny MD History of Present Illness (including history relevant to procedure): This 71-year-old male presents to the clinic today for his preoperative history and physical. Patient is received a few trochanteric bursa injections however this did not give him much relief. He has then gone on to have an MRI Showed severe osteoarthritis affecting his left hip. Patient has significant pain at night. He states that oral diclofenac does not alleviate it. He states that at times he does use some Tylenol and Excedrin which she feels provide him the most relief. He says his hip is now making his back hurt more and he has had to adjust his spinal stimulator. He is feeling the hip pain in his groin and laterally. Review Of Systems: A 12 point review of systems performed is unremarkable except for those things stated in the HPI past medical history. Past Medical History: Problems: S/P right rotator cuff repair Hip osteoarthritis Iliotibial band friction syndrome Piriformis syndrome of left side Left shoulder pain Right carpal tunnel syndrome Tenosynovitis of thumb Right hand pain Preop examination Strain of thoracic spine Arthritis of carpometacarpal (CMC) joints of both thumbs Trochanteric tendinitis Hip pain, bilateral Biceps tendonitis Back pain Gout Degenerative joint disease of hand Knee pain, bilateral Thumb pain bilateral Osteoarthritis Hypertension Procedure History Procedure Procedure Date Comments Left foot sx umbilical hernia B/L knee arthroscopy left knee surgery Stimulator CABG - Coronary artery bypass graft 08/06/2013 Right TKA 12/14/2012 left TKA 01/16/2012 Allergies and Sensitivities: amoxicillin Social history: Patient states that he drinks approximately 21 alcoholic beverages per week. He denies tobacco or illicit drug use. Family history: colon cancer, COPD, diabetes, heart disease, hypertension, liver cancer and prostate cancer. Mother and father both from heart attacks. Current Home Meds: (Last Updated 03/03 10:50) allopurinol (allopurinol 100 mg oral tablet) 100 mg PO bid 1 daily aspirin (aspirin 81 mg oral tablet) 81 mg PO Daily cyclobenzaprine (cyclobenzaprine 10 mg oral tablet) 10 mg PO bid PRN: as needed for spasm diclofenac (diclofenac sodium 75 mg oral delayed release tablet) TAKE 1 TABLET BY MOUTH TWICE A DAY garlic (garlic oral tablet) 1,000 mg PO qhs losartan (losartan 25 mg oral tablet) 25 mg PO Daily omega-3 polyunsaturated fatty acids (Fish Oil oral capsule) ubiquinone (Co-Q10) 200 mg PO bid Initial Wt: 03/03 125.0 kg 275 lb Allergies Allergy/AdvReac Type Severity Reaction Status Date / Time amoxicillin AdvReac Intermediate N/V Verified 03/01/22 12:30 Home Medications Medication Instructions Recorded Confirmed Type allopurinol 100 mg tablet 100 mg PO QAM 09/25/21 03/01/22 History apple cider vinegar 600 mg capsule 1,200 mg PO BID 09/25/21 03/01/22 History aspirin 81 mg capsule 81 mg PO QAM 09/25/21 03/01/22 History cholecalciferol (vitamin D3) 125 125 mcg PO QAM 09/25/21 03/01/22 History mcg (5,000 unit) tablet (Vitamin D3) coenzyme Q10 100 mg capsule (Co 100 mg PO PM 09/25/21 03/01/22 History Q-10) cranberry 500 mg capsule 500 mg PO PM 09/25/21 03/01/22 History cyanocobalamin (vitamin B-12) 500 500 mcg PO QAM 09/25/21 03/01/22 History mcg tablet garlic 1,000 mg capsule 1,000 mg PO PM 09/25/21 03/01/22 History losartan 25 mg tablet 25 mg PO PM 09/25/21 03/01/22 History multivitamin 1 tab PO QAM 09/25/21 03/01/22 History omega-3 fatty acids 1,000 mg PO PM 09/25/21 03/01/22 History rosuvastatin 10 mg tablet (Crestor) 10 mg PO PM 09/25/21 03/01/22 History zinc 100 mg tablet 50 mg PO QAM 09/25/21 03/01/22 History Past Med/Surg History Medical History (Updated 03/05/22 @ 09:49 by Alfonzo Bose PA-C) Aortic aneurysm 3.7cm > monitored by Dr. Vega in [place] CAD (coronary artery disease) s/p CABG x 3 in 2010, follows with Dr. Vega Degenerative disc disease Diverticular disease last diverticulitis episode 8 yrs ago Hx of gout Hyperlipidemia Hypertension controlled, stable per pt with home readings 120-130/80s consistently; has white coat HTN PVC (premature ventricular contraction) Spinal cord stimulator status instructed to bring controller DOS Surgical History H/O umbilical hernia repair History of cardiac cath Jul 2011 > no stents--CABG x 3. History of cataract surgery bilat History of colonoscopy History of tooth extraction History of total knee replacement bilat Hx of repair of right rotator cuff 10/12/21: LMA#5 + PNB. Hx of thumb surgery bilat trigger finger releases S/P tendon repair left foot S/P triple vessel bypass Jul 2011 [facility] Social History Smoking Status: Never smoker Second Hand Exposure: No; Hx Alcohol Use: Yes Hx Substance Use: No Preferred Language: [place] Communication Ability: Effective Relief Docking Master Required: No Beliefs That Will Affect Care: None Current Living Situation: Spouse Feels Safe at Home: Yes Assistive Devices: Denture - Upper, Denture - Lower and Hearing Aid - Bilateral Physical Exam Physical Exam: Physical Exam: (relevant to the procedure, including heart and lung evaluation) General: Alert and oriented x3 with proper grooming and hygiene Eyes: Pupils are equal react to light with accommodation. Extraocular lids are intact Throat: Deferred due to COVID-19 precautions Cardiac: Regular rate and rhythm with no murmurs or gallops appreciated Lungs: Clear to auscultation throughout with no wheezing, rales or rhonchi Abdomen: Obese, nondistended, nontender with NABS Extremities: Left hip: Flexion is limited to 110 degrees passive internal rotation to 5 degrees external rotation to 60 degrees. Logroll test positive. Stinchfield test positive. Scour impingement test positive. Straight leg raise test causes referred pain to his groin. He has tenderness to palpation over his groin and lower back/posterior hip. He is neurovascularly intact in the left lower extremity. Neuro: Cranial nerves II through XII are intact no motor or sensory deficit Skin: Normal in appearance with no open skin areas or discharge Results & Data ([facility]) Diagnostic Findings Studies (relevant to the procedure): MRI that was done on February 05, 2022, was reviewed. This shows a cam deformity of the femoral head with osteoarthritis noted in the joint with small subchondral cysts seen in the acetabulum and in the femoral head. He has a large labrum tear with a paralabral cyst noted superiorly on the acetabulum.
[~2022-03-18 06:37] MED LIST changes: +ACETAMINOPHEN 500 MG TAB PO SCH; -ALLO100T PO; -ASPI-319 PO; -ATROPINE SULFATE 0.1 MG/ML 5ML SYR IV PRN; -CLINDAMYCIN PHOS 150 MG/ML 2 ML VIAL IV SCH; -COEN1CAP32 PO; -CYAN100073 PO; +CeleBREX 200 MG CAP PO SCH; -DEXAMETHASONE SOD INJ 4 MG/ML VIAL ONE; -EpHEDrine SULFATE INJ 50 MG/ML AMP IV PRN; +FAMOTIDINE 20 MG TAB PO SCH; -FENTANYL CITRATE INJ 50 MCG/1 ML 2 ML VIAL IV PRN; -FENTANYL CITRATE INJ 50 MCG/1 ML 2 ML VIAL ONE; -FLAX1CAP11 PO; -GARL10007 PO; -HYDROmorphone INJ 1 MG/ML SYR IV PRN; -LACTATED RINGER'S 1000ML 1,000 ML IV SCH; -LIDOCAINE HCL 1% 20 ML VIAL ONE; -LIDOCAINE HCL 2% 2 ML VIAL (20MG/ML) ONE; +LR 500ML BOLUS, THEN 15ML/HR IV SCH; +LR 60ML/HR IV SCH; -METO25TA3 PO; -METOCLOPRAMIDE HCL INJ 5 MG/ML 2 ML VIAL IV PRN; -MIDAZOLAM HCL 1 MG/ML 2ML VIAL ONE; -MULT-506 PO; -OMEG10007 PO; -ONDANSETRON INJ 2 MG/ML 2 ML VIAL IV PRN; -ONDANSETRON INJ 2 MG/ML 2 ML VIAL ONE; -OXYCODONE/ACETAMINOPHEN 5-325 TAB PO PRN; -PHENYLEPHRINE 100MCG/ML 5ML SYR IV PRN; -PROMETHAZINE HCL INJ 12.5 MG in SODIUM CHLORIDE 0.9% 50ML 50 ML IV PRN; -PROPOFOL IV EMULSION 10 MG/ML 20 ML VIAL ONE; -RANI1TAB77 PO; -ROPIVACAINE 0.5% 5 MG/ML 30 ML VIAL ONE; +ROPIVACAINE 0.5% HCL/PF 150 MG, BUPIVACAINE 0.75% MPF 20 ML, EPINEPHrine 0.15 MG, Ketor... INFIL SCH; -ROSU5TAB PO; -SODIUM CHLORIDE 0.9% 1000ML 1,000 ML IV SCH; +Scopolamine 1 MG TDSY TD SCH; +TRANEXAMIC ACID 1,000 MG **IV Intra-op IV SCH; +TRANEXAMIC ACID 1,000 MG **IV Pre-op IV SCH; +dexAMETHasone 4 MG TAB PO SCH; +traMADol HCL 50 MG TABLET PO SCH
[2022-03-18] MEDS ORDERED: MIDAZOLAM HCL 1 MG/ML 2ML VIAL ONE (07:53)
[2022-03-18] MEDS ORDERED: fentaNYL citrate 100 MCG/2 ML VIAL ONE (07:54)
--- NOTE | 2022-03-18 08:56 | History & Physical Bridge Note ---
Date of Service March 18, 2022 History & Physical Bridge Note I have examined the patient, reviewed the History & Physical and in the interval since the performance of the History & Physical I have noted the following changes of clinical significance: no changes noted
[2022-03-18] MEDS ORDERED: ORTHO JOINT ANESTHETIC ONE (09:02)
[2022-03-18] MEDS ORDERED: ePHEDrine sulfate 50 MG/ML AMP IV PRN (09:31)
[2022-03-18] MEDS ORDERED: ATROPINE SULFATE 0.1 MG/ML 10ML SYR IV PRN (09:31)
[2022-03-18] MEDS ORDERED: fentaNYL citrate 100 MCG/2 ML VIAL IV PRN (09:31)
[2022-03-18] MEDS ORDERED: ONDANSETRON INJ 2 MG/ML 2 ML VIAL IV PRN ×2 (09:31→13:03)
[2022-03-18] MEDS ORDERED: HYDROmorphone INJ 2 MG/ML SYR/VIAL IV PRN (09:31)
[2022-03-18] MEDS ORDERED: ROCURONIUM BROMIDE 10 MG/ML 5 ML VIAL IV ONE (10:02)
[2022-03-18] MEDS ORDERED: ONDANSETRON INJ 2 MG/ML 2 ML VIAL ONE (10:02)
[2022-03-18] MEDS ORDERED: PROPOFOL IV EMULSION 10 MG/ML 20 ML VIAL IV ONE ×2 (10:02→10:39)
[2022-03-18] MEDS ORDERED: LIDOCAINE 2% 2 ML VIAL/AMP(20MG/ML) INFIL ONE (10:02)
[2022-03-18] MEDS ORDERED: HYDROmorphone INJ 2 MG/ML SYR/VIAL ONE (10:05)
[2022-03-18] MEDS ORDERED: GLYCOPYRROLATE 0.2 MG/ML VIAL ONE (10:24)
[2022-03-18] MEDS ORDERED: NEOSTIGMINE METHYLSULFATE 1 MG/ML 10ML VIAL ONE (10:25)
--- NOTE | 2022-03-18 11:22 | Operative Report ---
Post Operative Report Pre & Post Diagnosis Operation Date: 03/18/22 09:20 Pre-Op Diagnosis: Left Hip Osteoarthritis Post-Op Diagnosis: Left Hip Osteoarthritis I identified the patient and participated in the time-out.: Yes Procedure Operation Date: 03/18/22 09:20 Actual Procedures p Left Total Hip Arthroplasty(Left) - Jeff Nguyen MD Surgeon Jeff Nguyen MD Die Cast Operator Lois Kerr MD and Isidro Kenney PA-C Estimated Blood Loss 200 Findings Consistent with Post-Op Diagnosis Fluids 1400 Specimens Left femoral head Anesthesia Type General Complications none Disposition Disposition: Recovery Room Indications 71-year-old gentleman, has had left hip pain that is been refractory to conservative management. X-rays were done which showed well-preserved joint space. However MRI showed a labrum tear and a large paralabral cyst. I had a long discussion with him about the diagnosis, treatment options. Risks and benefits of surgery, alternatives and expected outcomes were reviewed. After reviewing all these elected to proceed with surgery. All questions were answered. Informed consent was signed. Description of Procedure Patient was identified in the preoperative holding area and the surgical site, left hip, was marked. A spinal anesthetic was placed, then the patient was brought back to the main operating room, placed in the operating table and moved into the lateral decubitus position. Axillary roll was placed. All bony prominences were padded. Perioperative antibiotics and tranexamic acid 1 gram I V were administered. Operative extremity was prepped and draped in the normal sterile fashion. Prior to incision a multidisciplinary timeout was called. All in the room were in agreement. We began by making an incision for a posterior approach to the hip. We dissected down through subcutaneous tissues to the level of the fascia. The fascia was incised in line with the incision. Charnley bow was placed. Phuong- trochanteric fat was reflected posterioly to expose the piriformis and short external rotators of the hip. The piriformis and short external rotators were dissected off the posterior aspect of the trochanter. A box cut was made in the capsule. The femoral head was dislocated. The femoral neck cut was made at our preoperative template. The acetabulum was then exposed. The labrum was sharply excised. Contents of the cotyloid fossa were removed with electrocautery. We then began reaming at a size 8 mm less than our preoperative template. We reamed up by [address] the way up to a size 56 mm cup. This gave us good bleeding cancellus bone circumferentially. The acetabulum was then irrigated out and dried. The real Suffield Gription cup was then impacted down into position with 45 degrees of lateral opening and 25 degrees of anteversion. A single cancellous bone screw was placed up into the ilium. Excellent fixation was obtained. A trial liner for a 36 mm femoral head was then placed. Next we turned our attention to the femur. The lateral neck was removed with a box osteotome. Intramedullary guide was used followed by the lateralizing elba r. We then reamed up to a size 6 [place] stem. We then broached all the way up to a size 6. We began trialing with a standard offset neck and a +5 head. Hip was reduced. Leg lengths were 1-2 mm shorter than the other side. The hip was stable in extension and external rotation, and stable in the sleeper position. At 90 degrees of hip flexion the hip could be internally rotated 55 degrees befo re levering out of the cup. I was happy with the stability exam. Therefore the hip was dislocated and the femoral trial was removed. The acetabulum was re- exposed, and the trial liner was removed. An Altrx polyethylene liner for a 36 mm femoral head was then impacted into the shell. The locking mechanism was checked to ensure that it had engaged which it had. The femur was re-exposed. The femoral canal was irrigated and dried. The real size 6 standard offset [place] femoral stem was opened up. This was impacted down into position. It sat perhaps 1 mm lower than the femoral trial. The refore the 36 mm ceramic femoral head with a +8.5 mm offset was opened up and gently impacted down onto the trunnion. The hip was atraumatically reduced. Another 1 gram of IV tranexamic acid was started prior to closure. The wound was irrigated out with sterile Betadine solution. The injection cocktail was then placed in the soft tissues. The short external rotators, piriformis, and posterior capsule were repaired through drill holes in the greater trochanter using #2 Vicryl. The fascia was run with a looped #1 PDS. The subcutaneous layer was closed with #1 PDS. The dermal layer was closed with 2-0 Vicryl. Zip line was used for the skin followed by a Silverlon dressing. A compressive dressing was then placed. The patient was then rolled supine. Leg lengths were rechecked and were symmetric. An abduction pillow was placed. Sedation was lifted and the patient was transferred to recovery room in stable condition. Summary of implants: Depuy Suffield Gription Acetabular Shell Sector Cup, 56 mm outer diameter [place] Cancellous bone screw, 6.5 x 35 mm Suffield Altrx Polyethylene Acetabular Liner, Neutral, with a 36 mm inner diameter DePuy [place] Femoral stem with Porocoat, 12/14 taper, size 6 standard offset 36 mm ceramic femoral head with +8.5 mm offset Postoperative course: Patient will be admitted to the hospital from the recovery room. Patient will be weightbearing as tolerated with posterior hip precautions. Aspirin for DVT prophylaxis I attest to the content of the Intraoperative Record and any orders documented therein. Any exceptions are noted below.
--- NOTE | 2022-03-18 11:46 | Operative Report ---
Post Operative Report Pre & Post Diagnosis Operation Date: 03/18/22 09:20 Pre-Op Diagnosis: Left Hip Osteoarthritis Post-Op Diagnosis: Left Hip Osteoarthritis I identified the patient and participated in the time-out.: Yes Procedure Operation Date: 03/18/22 09:20 Actual Procedures p Left Total Hip Arthroplasty(Left) - Jeff Nguyen MD Surgeon P Patrick URENA Bedspread Cutter Hand Lois Kerr MD and Isidro Kenney PA-C Estimated Blood Loss 200 Findings Consistent with Post-Op Diagnosis see operative report Specimens see operative report Drains none Complications none Disposition Accompanied Patient To Recovery: Yes Indications This 71-year-old male presented to the office with complaints of persisting left hip pain. He had tried conservative care measures without improvement. He elected to proceed with surgical intervention after being educated about potential risks and outcomes. Preoperative imaging was obtained. Description of Procedure Patient was taken to the operating room where he was given general anesthesia. He was prepped and draped in the usual sterile fashion. Please see Dr. Nguyen's operative report for specifics of the procedure. I was present for the entire case from incision through final wound closure. Assistance was provided in tissue retraction, hemostasis, trial implant placement, final impla nt placement, and final wound closure. Patient was taken to the recovery room in satisfactory condition. I attest to the content of the Intraoperative Record and any orders documented therein. Any exceptions are noted below.
--- NOTE | 2022-03-18 11:48 | Operative Report ---
Post Operative Report Pre & Post Diagnosis Operation Date: 03/18/22 09:20 Pre-Op Diagnosis: Left Hip Osteoarthritis Post-Op Diagnosis: Left Hip Osteoarthritis I identified the patient and participated in the time-out.: Yes Procedure Operation Date: 03/18/22 09:20 Actual Procedures p Left Total Hip Arthroplasty(Left) - Jeff Nguyen MD Surgeon Scottie Nguyen MD Guide Excursion Lois Kerr MD and Isidro Kenney PA-C Estimated Blood Loss 200 Findings Consistent with Post-Op Diagnosis Consistent with post op findings Specimens no specimens Description of Procedure I participated in prepping dressing and assisted Dr. Nguyen during the procedure. Please see Dr. Nguyen note. I attest to the content of the Intraoperative Record and any orders documented therein. Any exceptions are noted below. Supervising Physician Co-Signing Physician Notes Dr. Nguyen
--- NOTE | 2022-03-18 12:15 | Anesthesiology Progress Note ---
Date of Service March 18, 2022 Anesthesia Post Procedure Vital Signs Vital Signs: Temp Pulse Pulse Resp BP BP Pulse Ox 03/18/22 12:10 75 16 140/59 L 98 03/18/22 12:00 53 L 14 129/61 98 03/18/22 11:50 64 14 113/76 98 03/18/22 11:44 36.0 C L 92 H 12 152/74 H 93 03/18/22 07:03 36.8 C 60 20 170/70 H 100 Transfer of Care Handoff Completed per policy Notes Mental Status: alert / awake / arousable and participated in evaluation Patient Amnestic to Procedure: Yes Nausea / Vomiting: adequately controlled Pain: adequately controlled Airway Patency, RR, SpO2: stable & adequate BP & HR: stable & adequate Hydration State: stable & adequate Anesthetic Complications: no major complications apparent and Pt Satisfied with anesthetic care
--- NOTE | 2022-03-18 12:40 | XRay Report ---
XR pelvis 1-2V routine CLINICAL HISTORY: Post Surgical COMPARISON: Pelvis radiograph March 03, 2022. FINDINGS: Electronic device projects over the right lower quadrant/flank. Alignment of the total lef t hip arthroplasty is anatomic. There is no periprosthetic fracture. No unexpected radiopaque body is noted. Acetabular screw is noted. IMPRESSION: Expected findings following total left hip arthroplasty. ACT 112: Negative or not required by law. Electronically signed by: Darvin Brandon M.D. 03/18/2022 12:38 PM
[2022-03-18] MEDS ORDERED: MAGNESIUM HYDROXIDE SUSP 30 ML UDC PO PRN (13:03)
[2022-03-18] MEDS ORDERED: TAMSULOSIN HCL 0.4 MG CAP PO PRN (13:03)
[2022-03-18] MEDS ORDERED: METOCLOPRAMIDE HCL INJ 5 MG/ML 2 ML VIAL IV PRN (13:03)
[2022-03-18] MEDS ORDERED: diphenhydrAMINE 50 MG/ML VIAL IV PRN (13:03)
[2022-03-18] MEDS ORDERED: HYDROmorphone INJ 0.5 MG/0.5 ML SYR IV PRN (13:03)
[2022-03-18] MEDS ORDERED: ALUMINUM/MAGNESIUM SUSP 30 ML UDC PO PRN (13:03)
[2022-03-18] MEDS ORDERED: bisacodyL 10 MG SUPP PR PRN (13:03)
[2022-03-18] MEDS ORDERED: oxyCODONE HCL IR 5 MG TAB (IMMEDIATE RELEASE) PO PRN (13:03)
[2022-03-18] MEDS ORDERED: NALOXONE HCL 0.4 MG/1 ML VIAL/CARP IV PRN (13:03)
[2022-03-18] MEDS ORDERED: SODIUM CHLORIDE 0.9% 1000ML 1,000 ML IV SCH (13:30)
[2022-03-18] MEDS: KETOROLAC TROMETHAMINE 15 MG/ML VIAL IV SCH ×2 (14:48→20:42)
[2022-03-18] MEDS: ACETAMINOPHEN 500 MG TAB PO SCH ×2 (14:49→22:26)
[2022-03-18] MEDS ORDERED: Scopolamine CHECK PATCH PLACEMENT SCH (16:00)
[2022-03-18] MEDS: ceFAZolin 2000MG 2,000 MG/15 ML SYR IV SCH (18:00)
[2022-03-18] MEDS: ASCORBIC ACID 500 MG TAB PO SCH (18:00)
[2022-03-18] MEDS: FERROUS GLUCONATE 324 MG TAB PO SCH (18:00)
[2022-03-18] MEDS: ASPIRIN 81 MG ECTAB PO SCH (20:42)
[2022-03-18] MEDS: DOCUSATE SODIUM 100 MG CAP PO SCH (20:43)
[2022-03-18] MEDS ORDERED: SENNA 8.6 MG TAB PO SCH (21:00)
[2022-03-18] MEDS ORDERED: ROSUVASTATIN CALCIUM 10 MG TAB PO SCH (21:00)
[2022-03-18] MEDS ORDERED: LOSARTAN POTASSIUM 25 MG TAB PO SCH (21:00)
[2022-03-19] MEDS: KETOROLAC TROMETHAMINE 15 MG/ML VIAL IV SCH ×2 (02:20→08:21)
[2022-03-19] MEDS: ceFAZolin 2000MG 2,000 MG/15 ML SYR IV SCH (02:20)
[2022-03-19] MEDS: ACETAMINOPHEN 500 MG TAB PO SCH ×2 (06:35→14:27)
[2022-03-19 07:49] LABS: Basophils # (auto) 0.01 K/uL (0-0.2); Basophils % (auto) 0.1 %; Hematocrit (blood only) 32.2 % (42-52); Hemoglobin 10.7 g/dL (14.0-18.0); Immature Granulocytes # (auto) 0.03 K/uL (0.00-0.02); Immature Granulocytes % (auto) 0.2 %; Lymphocytes % (auto) 5.7 %; Mean Corpuscular Hemoglobin 31.5 pg (25-34); Mean Corpuscular Hgb Conc 33.2 g/dL (32-36); Mean Corpuscular Volume 94.7 fL (80-100); Mean Platelet Volume 9.1 fL (7.4-10.4); Monocytes # (auto) 0.87 K/uL (0.11-0.59); Monocytes % (auto) 5.5 %; Neutrophils # (auto) 14.07 K/uL (1.4-6.5); Neutrophils % (auto) 88.5 %; Platelet Count 177 K/uL (130-400); RDW Coefficient of Variation 12.9 % (11.5-14.5); RDW Standard Deviation 44.3 fL (36.4-46.3); White Blood Count 15.88 K/uL (4.8-10.8)
[2022-03-19 08:04] LABS: BUN Creatinine Ratio 19.8 (10-20); Calcium 7.8 mg/dl (8.5-10.1); Creatinine Clr Calc Pharmacy 82.3 ml/min; Est GFR (African American) 78.1 ml/min; Est GFR (Non-African American) 67.4 ml/min; Potassium 4.3 mmol/L (3.5-5.1)
[2022-03-19] MEDS: ASCORBIC ACID 500 MG TAB PO SCH (08:10)
[2022-03-19] MEDS: FERROUS GLUCONATE 324 MG TAB PO SCH (08:11)
[2022-03-19] MEDS: ASPIRIN 81 MG ECTAB PO SCH (08:11)
[2022-03-19] MEDS: DOCUSATE SODIUM 100 MG CAP PO SCH (08:12)
[2022-03-19] MEDS ORDERED: ZINC SULFATE 220 MG CAPSULE PO SCH (09:00)
[2022-03-19] MEDS ORDERED: ASPIRIN 81 MG ECTAB PO SCH (09:00)
[2022-03-19] MEDS ORDERED: MULTIVITAMIN TAB PO SCH (09:00)
[2022-03-19] MEDS ORDERED: allopurinoL 100 MG TAB PO SCH (09:00)
--- NOTE | 2022-03-19 10:19 | Orthopedic Progress Note ---
Date of Service March 19, 2022 Assessment & Plan (1) Status post total hip replacement, left: Plan: POD1 s/p total hip arthroplasty left WBAT with walker Abduction pillow while in bed Reviewed posterior hip precautions with patient PT/OT Diet - regular Frequently ice and elevate DVT prophylaxis: ASA 81mg BID x 30 days, TEDS x 2 weeks Pain control: Tylenol 1000mg q 8hrs, oxycodone 5-10mg q4-6 hrs for moderate pain, Diclofenac 75mg BID x 2 weeks at home - patient already has diclofenac Recommend stool softener while on narcotic pain medication Dressing: Silverlon in place. Pt can leave this on for 2 weeks until he see DJ in the office Discharge home with home health x 2 weeks then transition to outpatient PT Follow up as scheduled with BELKIS Bose PA-C on 04/02 @ 2pm Admission and Anticipated Discharge Date Admission Date: March 18, 2022 Subjective Pt was seen and examined bedside. POD #1 s/p left total hip arthroplasty. Pt was admitted last night for observation. No major events over night. Vitals are stable. Labs unremarkable. X-rays show normal post operative changed. Pt reports they are doing well and pain is controlled. They are tolerating PO intake and voiding adequate amounts. Working with PT this morning. Pt denies F/C, N/V/D, SOB, CP. Pt deemed medically stable and ready for discharge if cleared by PT. Physical Exam Physical Exam: General: Pt laying in hospital bed AA&O, in NAD, calm and cooperative during exam Lower Extremity: Dressing in tact and not saturated. No surrounding erythema or drainage. Pt has full ROM of ankle and all 5 digits. Pt has 5/5 strength with resisted DF/PF. SLR in tact. Calf supple and non tender. NVI with sensation to light touch distally and good distal pulses present. Lower extremity noted to have good color and temperature with no signs of vascular or lymphatic insufficiency. Pt able to stand and walk a few steps. Results & Data ([facility]) Vital Signs (Past 12 Hours) Vital Signs Temp Pulse Resp BP Pulse Ox 03/19/22 07:36 36.6 C 61 16 136/61 99 03/19/22 01:27 36.5 C 53 L 16 153/69 H 95 03/18/22 22:57 36.7 C 66 18 127/68 97 Laboratory Results 03/19/22 03/19/22 Range/Units 07:31 07:31 WBC 15.88 H (4.8-10.8) K/uL RBC 3.40 L (4.7-6.1) M/uL Hgb 10.7 L (14.0-18.0) g/dL Hct 32.2 L (42-52) % MCV 94.7 (80-100) fL MCH 31.5 (25-34) pg MCHC 33.2 (32-36) g/dL RDW Std Deviation 44.3 (36.4-46.3) fL RDW Coeff of Dimple 12.9 (11.5-14.5) % Plt Count 177 (130-400) K/uL MPV 9.1 (7.4-10.4) fL Immature Gran % (Auto) 0.2 % Neut % (Auto) 88.5 % Lymph % (Auto) 5.7 % [place] % (Auto) 5.5 % Eos % (Auto) 0.0 % Baso % (Auto) 0.1 % Neut # (Auto) 14.07 H (1.4-6.5) K/uL Lymph # (Auto) 0.90 L (1.2-3.4) K/uL [place] # (Auto) 0.87 H (0.11-0.59) K/uL Eos # (Auto) 0.00 (0-0.5) K/uL Baso # (Auto) 0.01 (0-0.2) K/uL Immature Gran # (Auto) 0.03 H (0.00-0.02) K/uL Sodium 133 L (136-145) mmol/L Potassium 4.3 (3.5-5.1) mmol/L Chloride 101 (98-107) mmol/L Carbon Dioxide 22 (21-32) mmol/L Anion Gap 10 (3-11) BUN 22 (6-23) mg/dl Creatinine 1.11 (0.6-1.4) mg/dl Est Cr Clr Drug Dosing 82.3 ml/min Est GFR ( Amer) 78.1 ml/min Est GFR (Non-Af Amer) 67.4 ml/min BUN/Creatinine Ratio 19.8 (10-20) Glucose 154 H (70-99(Fasting)) mg/dl Calcium 7.8 L (8.5-10.1) mg/dl
--- NOTE | 2022-03-19 16:07 | Discharge Summary ---
Date of Service March 19, 2022 Admission HPI Per Admitting Provider Pt was seen and examined bedside. POD #1 s/p left total hip arthroplasty. Pt was admitted last night for observation. No major events over night. Vitals are stable. Labs unremarkable. X-rays show normal post operative changed. Pt reports they are doing well and pain is controlled. They are tolerating PO intake and voiding adequate amounts. Working well with PT/OT. Pt denies F/C, N/V/D, SOB, CP. Pt deemed medically stable and ready for discharge. Principal Diagnosis S/p left total hip arthroplasty Discharge Exam General: Pt laying in hospital bed AA&O, in NAD, calm and cooperative during exam Lower Extremity: Dressing in tact and not saturated. No surrounding erythema or drainage. Pt has full ROM of ankle and all 5 digits. Pt has 5/5 strength with resisted DF/PF. SLR in tact. Calf supple and non tender. NVI with sensation to light touch distally and good distal pulses present. Lower extremity noted to have good color and temperature with no signs of vascular or lymphatic insufficiency. Pt able to stand and walk a few steps. Discharge Data Allergies Allergy/AdvReac Type Severity Reaction Status Date / Time amoxicillin AdvReac Intermediate N/V Verified 03/18/22 07:05 Procedures Performed Operation Date: 03/18/22 09:20 Actual Procedures p Left Total Hip Arthroplasty(Left) - Jeff Nguyen MD Hospital Course (1) Status post total hip replacement, left: POD1 s/p total hip arthroplasty left WBAT with walker Abduction pillow while in bed Reviewed posterior hip precautions with patient PT/OT Diet - regular Frequently ice and elevate DVT prophylaxis: ASA 81mg BID x 30 days, TEDS x 2 weeks Pain control: Tylenol 1000mg q 8hrs, oxycodone 5-10mg q4-6 hrs for moderate pain, Diclofenac 75mg BID x 2 weeks at home - patient already has diclofenac Recommend stool softener while on narcotic pain medication Dressing: Silverlon in place. Pt can leave this on for 2 weeks until he see BELKIS in the office Discharge home with home health x 2 weeks then transition to outpatient PT Follow up as scheduled with BELKIS Bose PA-C on 04/02 @ 2pm Pt deemed medically and orthopedically stable for discharge today Total Time Total Time Spent Total Time Spent (In Minutes): 45 Discharge Plan Discharge Items Patient Disposition: Home - Home Health Services Reason For Visit: Left Hip Osteoarthritis Discharge Diagnosis: Left hip s/p total hip replacement Condition on Discharge: Good Activity: Per Instructions section Lifting: Wait until after follow-up appointment Bathing: May shower/bathe in 3 days Bathing Comment: Keep the silverlon dressing in place Exercise/Sports: Wait until after follow-up appointment Driving/Machine Use: No driving until cleared by Dr. Nguyen Weightbearing: Full weightbearing Non-emergency contact: Surgeon Call non-emergency contact if: you have any medication questions, your pain is not controlled, your temperature is above 101, your wound has increased redness, your wound has increased drainage and your wound pain has increased Follow-up/Referrals: Alfonzo Bose PA-C [Physician Associate Professor Of Counseling] - 04/02/22 2:00 pm Francis Ny MD [Primary Care Provider] - Diet: Heart Healthy Addtl Attending Provider Instructions: Post-operative Instructions Dear Patient and Family/Friends, Before you are discharged from the hospital, it is important to know what to expect when you get home after surgery. To that end, we have created this sheet of discharge instructions which covers many commonly asked questions. Make sure you go through this sheet in its entirety with your nurse before you are discharged. Please note that we will go over the specifics of your surgery and recovery when you return for your first post-operative visit. Sincerely, Dr. Nguyen Pain Expect to be in a fair amount of pain after surgery. Remember, our goal is not to eliminate your pain, but to make it tolerable. It is a good idea to stay ahead of your pain by taking the medications you were prescribed once you get home. Typically, the pain starts improving 3-7 days after surgery. You should start weaning off the narcotic pain medication (oxycodone, hydrocodone, hydromorphone, morphine) as soon as your pain improves. Please call our office if your pain is not adequately controlled. Ice Ice your operative site at least 5 times a day for 15-30 minutes at a time. Make sure you have a thin cloth between the ice or cooling unit and your skin to prevent ontiveros bite. This is especially important if you received a nerve block. Continue icing your operative site for the first 5-7 days after surgery, then as needed. Diet/Nausea/Vomiting Start by drinking clear liquids and eating crackers. If you can tolerate this, then you may resume your normal diet. If you feel nauseated or vomit, take Zofran/ondansetron (if prescribed). Please call our office if you have intractable nausea or vomiting, or, if after hours, you may go to the Emergency Room for help. Constipation Constipation is a common side effect of narcotic pain medication. If you have not had a bowel movement within 2 days after surgery, we recommend purchasing an over the counter laxative such as Milk of Magnesia, Dulcolax, or Miralax from a local pharmacy, and taking it as instructed. Call our clinic if any questions. Nerve block The anesthesia team sometimes places a nerve block to help with post-operative pain control. This results in significant numbness and inability to move the extremity. The nerve block usually wears off in 8-12 hours, but sometimes can last up to 24 hours. Please call our office if you are still unable to move your extremity after 24 hours, unless you received a pain pump to take home. Nerve blocks typically wear off quickly, so start taking pain medication as soon as you start feeling soreness near your surgical site. Weight bearing and Range of Motion. It is fine for you to bear weight on your leg. Use your walker or crutches to assist in ambulation. Physical therapy You will be given a prescription for physical therapy or occupational therapy at your first post-operative appointment. Typically, patients start therapy within 1 week of surgery Wound care and showering We will inspect your wound at your first post-operative visit, and may do a dressing change at that time. Most patients will be in a water-proof dressing that is removed 14 days after surgery. It is normal to see some dried blood on the dressing. Do not remove your dressing, paper strips or sutures yourself unless you are given permission. Showering is allowed the day after surgery. Do not scrub or remove any dressings. The wound should not be submerged underwater (i.e. in a bathtub or pool) until 4 weeks after surgery EMILY stockings If you were given white stockings, these are to be worn at all times except to shower (on both legs) for the first 2 weeks after surgery. Driving You may not drive while taking narcotic pain medication or while in a cast, splint, sling or brace. You, the patient, need to make the final determination about when you are safe to drive, however, the earliest you may consider driving after surgery is below: Hand/Wrist/Elbow Surgery: 3 days Shoulder Surgery: 2 weeks Hip,/Knee/Ankle Surgery: 4 weeks Return to Work Your return to work depends on what surgery was done and what type of work you d o. Please bring any paperwork your employer needs completed to your first post- operative visit. Also, bring a description of your job duties, as this helps us to understand what risks you may face at work. Travel Avoid long distance travel (greater than 1 hour) in airplanes and cars for the first 6 weeks after surgery. If you must travel, you need to have a Doppler ul trasound done before you travel to rule out a blood clot in your legs. Follow-up You should have a follow-up appointment already scheduled 1-2 days after surgery. If not, please contact our office to make this appointment before you leave the hospital. When to call the office It is normal to have swelling and bruising in the limb that was operated on. This will improve with time. It is also normal to have fevers for the first 2 days after surgery. Reasons you should call your doctor include: Uncontrolled pain; Nausea, vomiting, or constipation that does not improve with medication; Fevers over 101.5, chills, sweats; Drainage or bleeding from the wound; Foul odor; Spreading areas of redness; Any other concerns Maintain your total hip precautions and use your wedge pillow at night. Pending Studies at Discharge: No Stand-Alone Forms: My [facility], Smoking Cessation Medications and DC Order Prescriptions: New acetaminophen [Tylenol Extra Strength] 500 mg Tablet 1,000 mg PO Q8 Qty: 30 RF: 0 aspirin 81 mg Tablet,Delayed Release (Dr/Ec) 81 mg PO BID 30 Days Qty: 60 RF: 0 oxycodone 5 mg Tablet 5 mg PO Q4H PRN (Reason: pain) Qty: 18 RF: 0 diclofenac sodium 75 mg tablet,delayed release (DR/EC) 75 mg PO BID PRN (Reason: pain) Qty: 28 RF: 1 Continued multivitamin Tablet 1 tab PO QAM RF: 0 zinc 100 mg Tablet 50 mg PO QAM RF: 0 allopurinol 100 mg Tablet 100 mg PO QAM RF: 0 garlic 1,000 mg Capsule 1,000 mg PO PM RF: 0 cyanocobalamin (vitamin B-12) 500 mcg Tablet 500 mcg PO QAM RF: 0 apple cider vinegar 600 mg Capsule 1,200 mg PO BID RF: 0 losartan 25 mg Tablet 25 mg PO PM RF: 0 cranberry 500 mg Capsule 500 mg PO PM RF: 0 coenzyme Q10 [Co Q-10] 100 mg Capsule 100 mg PO PM RF: 0 omega-3 fatty acids Capsule 1,000 mg PO PM RF: 0 rosuvastatin [Crestor] 10 mg Tablet 10 mg PO PM RF: 0 cholecalciferol (vitamin D3) [Vitamin D3] 125 mcg (5,000 unit) Tablet 125 mcg PO QAM RF: 0 Discontinued aspirin 81 mg Capsule 81 mg PO QAM RF: 0 Discharge Orders: Discharge Order (Routine); Ordered 03/19/22 Ordered By: Nicole Aguilar Admission Data Admit Date/Time: 03/18/22 11:53 Attending Provider: Jeff Nguyen Admit Provider: Jeff Nguyen Primary Care Provider: Francis Ny Other Providers: [employer],[facility]
[2022-03-19] MEDS ORDERED: CeleBREX 200 MG CAP PO SCH (21:00)
== END 2022-03-19 17:12 | disposition home health service (06) ==
LOC: ASU 06:37 → 3N 06:37

== ENCOUNTER 2022-04-19 14:31 | Inpatient (IN) ==
--- NOTE | 2022-04-19 12:08 | History & Physical Report ---
Date of Service April 19, 2022 Assessment & Plan (1) Wound infection, posttraumatic: Plan: Patient was seen and evaluated today by myself and Dr. Nguyen. He is status post a left total hip arthroplasty on March 18, 2022. He then had a subsequent fall onto his left hip sustaining a wound dehiscence of the distal aspect of his incision. It's now be 2 and 1/2 weeks and continues to drain and not healing adequately. He's been on Keflex and doing dressing changes. At this point, recommended and Incision and Drainage and revision of the scar of his left hip. We will plan on doing this later today. He is in agreement. Risks/benefits of the surgery were discussed and informed consent has been obtained by Dr. Nguyen. We do not need any labwork, EKG or medical clearance, he will go directly to the hospital to obtain a STAT COVID 19 test. He will be admitted post operatively for possibly need for IV antibiotics via PICC line. We will obtain intra-operative cultures and follow as an inpatient. He is currently NPO. New dressings were applied to his left hip. Patient understands and agrees with the plan. He will report to the hospital at the appropriate time for his surgery. History of Present Illness Chief Complaint: left hip wound, blistering x Primary Care Provider: Francis Ny MD Jonathan is seen back for his left hip. We have been following him for a traumatic wound dehiscence secondary to a fall sustained about 10 days after surgery. He was seen in the Emergency Room by my partner at that time, who performed a bedside irrigation and wound closure. He has been on oral antibiotics since that time, doing dressing changes. He has not had any fevers or chills. He says his hip feels great. However, despite the oral antibiotics, he has continued to have drainage from the wound. He has also started to develop some faint redness around the wound, which he believes is secondary to the tape. He came in this morning for a wound check after they sent some pictures that showed some hypertrophic granulation tissue bubbling up at the distal aspect of the wound. Allergies Allergy/AdvReac Type Severity Reaction Status Date / Time amoxicillin AdvReac Mild N/V Verified 04/19/22 14:48 Home Medications Medication Instructions Recorded Confirmed Type allopurinol 100 mg tablet 100 mg PO QAM 09/25/21 04/19/22 History apple cider vinegar 600 mg capsule 1,200 mg PO BID 09/25/21 04/19/22 History cholecalciferol (vitamin D3) 125 125 mcg PO QAM 09/25/21 04/19/22 History mcg (5,000 unit) tablet (Vitamin D3) coenzyme Q10 100 mg capsule (Co 100 mg PO PM 09/25/21 04/19/22 History Q-10) cranberry 500 mg capsule 500 mg PO PM 09/25/21 04/19/22 History cyanocobalamin (vitamin B-12) 500 500 mcg PO QAM 09/25/21 04/19/22 History mcg tablet garlic 1,000 mg capsule 1,000 mg PO PM 09/25/21 04/19/22 History losartan 25 mg tablet 25 mg PO PM 09/25/21 04/19/22 History multivitamin 1 tab PO QAM 09/25/21 04/19/22 History omega-3 fatty acids 1,000 mg PO PM 09/25/21 04/19/22 History rosuvastatin 10 mg tablet (Crestor) 10 mg PO PM 09/25/21 04/19/22 History zinc 100 mg tablet 50 mg PO QAM 09/25/21 04/19/22 History acetaminophen 500 mg tablet 1,000 mg PO Q8 #30 tabs 03/19/22 04/19/22 Rx (Tylenol Extra Strength) diclofenac sodium 75 mg 75 mg PO BID PRN pain #28 tabs 03/19/22 04/19/22 Rx tablet,delayed release oxycodone 5 mg tablet 5 mg PO Q4H PRN pain #18 tabs 03/19/22 04/19/22 Rx aspirin 81 mg chewable tablet 81 mg PO DAILY 04/19/22 04/19/22 History cephalexin 500 mg capsule 500 mg PO TID 04/19/22 04/19/22 History Past Med/Surg History Medical History Anemia Aortic aneurysm 3.7cm > monitored by Dr. Vega in [place] CAD (coronary artery disease) s/p CABG x 3 in 2010, follows with Dr. Vega Degenerative disc disease Diverticular disease last diverticulitis episode 8 yrs ago Hx of gout Hyperlipidemia Hypertension controlled, stable per pt with home readings 120-130/80s consistently; has white coat HTN PVC (premature ventricular contraction) Spinal cord stimulator status instructed to bring controller DOS Surgical History H/O umbilical hernia repair History of cardiac cath Jul 2011 > no stents--CABG x 3. History of cataract surgery bilat History of colonoscopy History of tooth extraction History of total knee replacement bilat Hx of repair of right rotator cuff 10/12/21: LMA#5 + PNB. Hx of thumb surgery bilat trigger finger releases S/P tendon repair left foot S/P triple vessel bypass Jul 2011 [facility] Status post total hip replacement, left Family History (Updated 04/19/22 @ 12:31 by Agnes Dorsey PA-C) Mother Heart disease Father Heart disease Other COPD (chronic obstructive pulmonary disease) Colorectal cancer Diabetes Hypertension Liver cancer Prostate cancer Social History Smoking Status: Former smoker Tobacco Type: E-cigarettes / Vaping Second Hand Exposure: No; Do You Dip or Chew Tobacco: No; Hx Alcohol Use: Yes Alcohol type: beer Hx Substance Use: No Preferred Language: Ivorian Communication Ability: Effective Carton Stapler Required: No Beliefs That Will Affect Care: None Current Living Situation: Spouse Other Information That Helps Us Care for You: No Feels Safe at Home: Yes Safety Concerns: Feels Safe At This Time Assistive Devices: Cane Review of Systems Constitutional: no fever, no chills, no sweats, no body aches, no fatigue and no anorexia Eyes: no discharge, no dry eyes and no eye pain Ear, Nose, Mouth, Throat: no tinnitus, no hearing loss, no dizziness, no dental pain and no sore throat Respiratory: no cough and no wheezing Cardiovascular: no chest pain, no chest pain at rest and no chest pain with activity Gastrointestinal: no abdominal pain, no heartburn, no nausea and no vomiting Genitourinary: no dysuria, no urinary hesitancy or no urinary incontinence Musculoskeletal: no radicular pain, no joint pain, no deformity, no swelling and no stiffness wound left hip Integumentary: + wounds (left hip wound, blistering, serous drainage) Neurologic: no gait abnormality, no falls, no tingling, no numbness, no radiating pain, no dizziness and no syncope Psychiatric: no anxiety and no confusion Endocrine: no fatigue, no polyuria and no cold intolerance Hematologic / Lymphatic: no easy bleeding, no easy bruising and no coagulopathy Allergy / Immunological: no throat swelling, no tongue swelling, no cough and no rash Physical Exam Constitutional: WD/WN, vitals as above vital Signs: Temperature: 36.2 degrees Celsius, BP: 120/70, Pulse: 86 bpm, Oxygenation on room air: 97% Height: 179 cm, Weight: 125 kg, BMI: 39 Eyes: PERRL, conjunctivae normal, anicteric sclerae ENMT: external ear and nose normal, oropharynx normal Neck: trachea midline, no thyromegaly Respiratory: normal respiratory effort, lungs clear to auscultation Cardiovascular: RRR, no murmur, no edema Chest (Breasts): Chest: normal inspection of chest Gastrointestinal (Abdomen): normal bowel sounds, soft, nontender, no hepatosplenomegaly Musculoskeletal: Full ROM left hip without discomfort. No distal edema. Moves knee and ankle well. Strength normal. Distal sensation normal. No calf pain. Skin: Left hip wound shows that the distal aspect of the wound approximately 8 cm or so that he dehisced from the fall is quite different in appearance than the remaining portion of the wound. There is an approximately 12 mm diameter area of hypertrophic granulation tissue at the distal aspect of the incision. This is raised up approximately 5 to 6 mm above the surrounding skin. There may be a small Vicryl suture just proximal to this. He is draining serous type of fluid from this. Proximal to the hypertrophic granulation tissue, there is some what appears to be small pinpoint areas of purulence concerning for infection. There is some faint geometric shaped erythema that would be consistent with the tape reaction. Neurologic: patellar DTR's 2+ bilat, sensation intact and PERRL, EOMI, accommodation nl, no face palsy, no dysarthria Psychiatric: A+Ox3, euthymic affect Results & Data Results & Data ([facility]) Vital Signs (Past 12 Hours) vital Signs: Temperature: 36.2 degrees Celsius, BP: 120/70, Pulse: 86 bpm, Oxygenation on room air: 97% performed on 04/19/22 Laboratory Results Covid test pending Diagnostic Findings No imaging performed today, previous imaging shows stable left total hip arthroplasty, no evidence of fracture or loosening. Code Status & VTE Plan VTE Prophylaxis Plan VTE Prophylaxis will be ordered: Yes Supervising Physician Co-Signing Physician Notes I saw and examined the patient and formulated the plan. Agree with above note. Discussed with patient possible need to open the fascia and do a poly exchange if fascia appears violated.
[~2022-04-19 14:31] MED LIST changes: -ACETAMINOPHEN 500 MG TAB PO SCH; -BUPIVACAINE 0.5 % 5 MG/1 ML PF 10ML VIAL ONE; -CeleBREX 200 MG CAP PO SCH; -FAMOTIDINE 20 MG TAB PO SCH; +LACTATED RINGER'S 1,000 ML IV SCH; -LR 500ML BOLUS, THEN 15ML/HR IV SCH; -LR 60ML/HR IV SCH; +Patient's ALLERGY Info needs ENTERED SCH; -ROPIVACAINE 0.5% HCL/PF 150 MG, BUPIVACAINE 0.75% MPF 20 ML, EPINEPHrine 0.15 MG, Ketor... INFIL SCH; -Scopolamine 1 MG TDSY TD SCH; -TRANEXAMIC ACID 1,000 MG **IV Intra-op IV SCH; -TRANEXAMIC ACID 1,000 MG **IV Pre-op IV SCH; +TRANEXAMIC ACID 1,000 MG in 0.9 % SODIUM CHLORIDE 100 ML IR SCH; +ceFAZolin 2000MG 2,000 MG/15 ML SYR IV ONE; -dexAMETHasone 4 MG TAB PO SCH; -traMADol HCL 50 MG TABLET PO SCH
[2022-04-19] MEDS ORDERED: MIDAZOLAM HCL 1 MG/ML 2ML VIAL ONE (15:30)
[2022-04-19] MEDS ORDERED: fentaNYL citrate 100 MCG/2 ML VIAL ONE ×3 (15:30→17:26)
--- NOTE | 2022-04-19 15:44 | Anesthesiology Consultation ---
Date of Service April 19, 2022 Assessment & Plan Chart Review Chart Review: Acceptable Risk for Surgery Consults Requested none History Surgery Operation Date: 04/19/22 11:35 Proposed Procedures p Irrigation and Debridement of Left Hip Wound, - Jeff Nguyen MD s Possible Hip Left Polyethylene Exchange - Jeff Nguyen MD Height/Weight Height: 5 ft 10.5 in Weight: 119.777 kg Allergies Allergy/AdvReac Type Severity Reaction Status Date / Time amoxicillin AdvReac Mild N/V Verified 04/19/22 14:48 Medications Home Medications Medication Instructions Recorded Confirmed Last Taken allopurinol 100 mg tablet 100 mg PO QAM 09/25/21 04/19/22 04/19/22 05:30 apple cider vinegar 600 mg capsule 1,200 mg PO BID 09/25/21 04/19/22 04/18/22 21:30 cholecalciferol (vitamin D3) 125 125 mcg PO QAM 09/25/21 04/19/22 04/19/22 05:30 mcg (5,000 unit) tablet (Vitamin D3) coenzyme Q10 100 mg capsule (Co 100 mg PO PM 09/25/21 04/19/22 04/18/22 21:00 Q-10) cranberry 500 mg capsule 500 mg PO PM 09/25/21 04/19/22 04/18/22 21:00 cyanocobalamin (vitamin B-12) 500 500 mcg PO QAM 09/25/21 04/19/22 04/12/22 mcg tablet garlic 1,000 mg capsule 1,000 mg PO PM 09/25/21 04/19/22 04/18/22 21:00 losartan 25 mg tablet 25 mg PO PM 09/25/21 04/19/22 04/18/22 21:00 multivitamin 1 tab PO QAM 09/25/21 04/19/22 04/18/22 omega-3 fatty acids 1,000 mg PO PM 09/25/21 04/19/22 04/12/22 rosuvastatin 10 mg tablet (Crestor) 10 mg PO PM 09/25/21 04/19/22 04/18/22 21:00 zinc 100 mg tablet 50 mg PO QAM 09/25/21 04/19/22 04/12/22 acetaminophen 500 mg tablet 1,000 mg PO Q8 #30 tabs 03/19/22 04/19/22 Unknown (Tylenol Extra Strength) diclofenac sodium 75 mg 75 mg PO BID PRN pain #28 tabs 03/19/22 04/19/22 04/19/22 05:30 tablet,delayed release oxycodone 5 mg tablet 5 mg PO Q4H PRN pain #18 tabs 03/19/22 04/19/22 Unknown aspirin 81 mg chewable tablet 81 mg PO DAILY 04/19/22 04/19/22 04/19/22 05:30 cephalexin 500 mg capsule 500 mg PO TID 04/19/22 04/19/22 04/19/22 05:30 Active Medications Generic Name Dose Route Start Last Admin Trade Name Freq PRN Reason Stop Dose Admin Lactated Ringer's 1,000 mls @ 15 mls/hr 04/19/22 06:00 04/19/22 15:22 Lr IV 04/20/22 05:59 15 mls/hr .Q24H MARCUS Administration NPO Date Last Intake of Fluids: 04/19/22 Time Last Intake of Fluids: 09:05 Date Last Intake of Solids: 04/19/22 Time Last Intake of Solids: 09:05 Past Medical History Medical History Anemia Aortic aneurysm 3.7cm > monitored by Dr. Vega in [place] CAD (coronary artery disease) s/p CABG x 3 in 2010, follows with Dr. Vega Degenerative disc disease Diverticular disease last diverticulitis episode 8 yrs ago Hx of gout Hyperlipidemia Hypertension controlled, stable per pt with home readings 120-130/80s consistently; has white coat HTN PVC (premature ventricular contraction) Spinal cord stimulator status instructed to bring controller DOS Past Family History Family History (Updated 04/19/22 @ 12:31 by Agnes Dorsey PA-C) Mother Heart disease Father Heart disease Other COPD (chronic obstructive pulmonary disease) Colorectal cancer Diabetes Hypertension Liver cancer Prostate cancer Past Surgical History Surgical History H/O umbilical hernia repair History of cardiac cath Jul 2011 > no stents--CABG x 3. History of cataract surgery bilat History of colonoscopy History of tooth extraction History of total knee replacement bilat Hx of repair of right rotator cuff 10/12/21: LMA#5 + PNB. Hx of thumb surgery bilat trigger finger releases S/P tendon repair left foot S/P triple vessel bypass Jul 2011 [facility] Status post total hip replacement, left Social History Smoking Status: Former smoker tobacco type: e-cigarettes Do You Dip or Chew Tobacco: No Hx Alcohol Use: Yes Alcohol type: beer alcohol intake frequency: 0-2 drinks per day Alcohol Intake Frequency Comment: two to three beers a day Hx Substance Use: No substance use type: does not use Physical Exam Vital Signs Last Vital Signs Temp 36.8 C 04/19/22 14:55 Pulse 65 04/19/22 14:55 Resp 18 04/19/22 14:55 BP 194/81 H 04/19/22 14:55 Pulse Ox 96 04/19/22 14:55 O2 Del Method 04/19/22 14:55
[2022-04-19] MEDS ORDERED: HYDROmorphone INJ 2 MG/ML SYR/VIAL IV PRN (15:47)
[2022-04-19] MEDS ORDERED: PROMETHAZINE HCL 12.5 MG in SODIUM CHLORIDE 0.9% 50 ML IV PRN (15:47)
[2022-04-19] MEDS ORDERED: ePHEDrine sulfate 50 MG/ML AMP IV PRN (15:47)
[2022-04-19] MEDS ORDERED: ONDANSETRON INJ 2 MG/ML 2 ML VIAL IV PRN ×2 (15:47→20:42)
[2022-04-19] MEDS ORDERED: ATROPINE SULFATE 0.1 MG/ML 10ML SYR IV PRN (15:47)
[2022-04-19] MEDS ORDERED: DEXAMETHASONE SOD INJ 4 MG/ML VIAL ONE (16:04)
[2022-04-19] MEDS ORDERED: PROPOFOL IV EMULSION 10 MG/ML 20 ML VIAL IV ONE (16:04)
[2022-04-19] MEDS ORDERED: SUCCINYLCHOLINE CHLORIDE 20 MG/ML 10 ML VIAL IV ONE (16:04)
[2022-04-19] MEDS ORDERED: ONDANSETRON INJ 2 MG/ML 2 ML VIAL ONE (16:04)
[2022-04-19] MEDS ORDERED: ESMOLOL HCL INJ 10 MG/ML 10ML VIAL IV ONE (16:32)
[2022-04-19] MEDS ORDERED: GENTAMICIN SULFATE 40 MG/ML 2 ML VIAL ONE (16:45)
[2022-04-19] MEDS ORDERED: VANCOMYCIN HCL 1000MG/20ML VIAL ONE (16:45)
[2022-04-19] MEDS ORDERED: SODIUM CHLORIDE 0.9% 250 ML IV PRN (17:10)
[2022-04-19 17:20] LABS: Hematocrit (blood only) 28.3 % (40.1-51.0); Hemoglobin 9.3 g/dl (14.0-18.0)
[2022-04-19] MEDS ORDERED: PHENYLEPHRINE HCL 10 MG/ML VIAL ONE (17:36)
[2022-04-19] MEDS ORDERED: ceFAZolin 330 MG/ML 1 GM VIAL ONE (17:46)
[2022-04-19] MEDS ORDERED: VANCOMYCIN HCL 1 GM/270 ML BAG IV ONE (17:52)
--- NOTE | 2022-04-19 18:10 | Operative Report ---
Post Operative Report Pre & Post Diagnosis Operation Date: 04/19/22 11:35 Pre-Op Diagnosis: Disruption Traumatic Injury Wound Repair Initial Post-Op Diagnosis: Disruption Traumatic Injury Wound Repair Initial I identified the patient and participated in the time-out.: Yes Procedure Operation Date: 04/19/22 11:35 Actual Procedures p Irrigation and Debridement of Left Hip Wound.(Left) - Jeff Nguyen MD s Hip Left Polyethylene Exchange(Left) - Jeff Nguyen MD Surgeon RUTH ANN Nguyen MD Legal Counsel Anne Marie MOSCOSO, Willian MOSCOSO Estimated Blood Loss 800 Findings Consistent with Post-Op Diagnosis see operative report Specimens see operative report Drains none Complications none Disposition Accompanied Patient To Recovery: Yes Indications This 71-year-old male presented to the office with complaints of persisting draining from his left hip surgical incision. He was just over 4 weeks postop from total hip arthroplasty. Likelihood for infection was discussed. He has elected to proceed with surgical intervention after being educated about potential risks and outcomes. Preoperative imaging was obtained. Description of Procedure Patient was taken the operating room where he was given general anesthesia. He was prepped and draped in the usual sterile fashion. Please see Dr. Nguyen's operative report for specifics of the procedure. I was present for the entire case from initial patient positioning through final wound closure. Assistance was provided in tissue retraction, hemostasis, hardware removal, new hardware placement, and wound closure. Patient was taken to the recovery room in satisfactory condition. I attest to the content of the Intraoperative Record and any orders documented therein. Any exceptions are noted below.
[2022-04-19] MEDS ORDERED: DEXTROSE 5% IV ONE (18:26)
[2022-04-19] MEDS ORDERED: VANCOMYCIN CONSULT ACTIVE PRN ×2 (18:26→20:42)
[2022-04-19] MEDS ORDERED: GLYCOPYRROLATE 0.2 MG/ML VIAL ONE (18:26)
[2022-04-19] MEDS ORDERED: NEOSTIGMINE METHYLSULFATE 1 MG/ML 10ML VIAL ONE (18:26)
[2022-04-19] MEDS ORDERED: VANCOMYCIN HCL IV ONE (18:26)
[2022-04-19] MEDS ORDERED: VANCOMYCIN HCL 750 MG in SODIUM CHLORIDE 0.9% 250 ML IV STA (18:31)
--- NOTE | 2022-04-19 18:56 | Operative Report ---
Post Operative Report Pre & Post Diagnosis Operation Date: 04/19/22 11:35 Pre-Op Diagnosis: Disruption Traumatic Injury Wound Repair Initial Post-Op Diagnosis: Disruption Traumatic Injury Wound Repair Initial I identified the patient and participated in the time-out.: No Procedure Operation Date: 04/19/22 11:35 Actual Procedures p Irrigation and Debridement of Left Hip Wound.(Left) - Jeff Nguyen MD s Hip Left Polyethylene Exchange(Left) - Jeff Nguyen MD Surgeon Jeff Nguyen PA-C Crystal Gazer Anne Marie MOSCOSO, Willian MOSCOSO Estimated Blood Loss 800 Findings Consistent with Post-Op Diagnosis left hip infection Specimens hardware, soft tissue, intra-operative cultures Anesthesia Type General Description of Procedure Patient was taken to the operating room given IV ancef after intra-operative cultures obtained. I was present for the second half of the case and assisted with tissue retraction, debridement, closure and dressings. Please see Dr. Nguyen's operative report for further details. Patient was awakened and taken to the operating room in stable condition. I attest to the content of the Intraoperative Record and any orders documented therein. Any exceptions are noted below.
--- NOTE | 2022-04-19 18:59 | Post Operative Brief Note ---
Immediate Post Op Note v1 Date of Surgery April 19, 2022 Pre & Post Diagnosis Operation Date: 04/19/22 11:35 Pre-Op Diagnosis: Right hip wound infection following total joint arthroplasty Post-Op Diagnosis: Right hip wound infection following total joint arthroplasty I identified the patient and participated in the time-out.: Yes Procedure Operation Date: 04/19/22 11:35 Actual Procedures p Irrigation and Debridement of Left Hip Wound.(Left) - Jeff Nguyen MD s Hip Left Polyethylene Exchange(Left) - Jeff Nguyen MD Surgeon Jeff Nguyen MD Finishing And Shipping Supervisor Anne Marie MOSCOSO, Willian MOSCOSO Estimated Blood Loss 800 Findings Consistent with Post-Op Diagnosis Anesthesia Type General Complications none Disposition Disposition: Recovery Room
[2022-04-19] MEDS: fentaNYL citrate 100 MCG/2 ML VIAL IV PRN ×4 (19:11→19:31)
--- NOTE | 2022-04-19 19:39 | XRay Report ---
XR pelvis 1-2V routine HISTORY: 71 years-old Male Post Surgical left hip total joint arthroplasty COMPARISON: 04/07/2022 TECHNIQUE: AP view of the pelvis FINDINGS: There is moderate right hip osteoarthritis. Left hip total joint arthroplasty demonstrates satisfacto ry alignment. Status post placement of antibiotic seeds within the joint space. Expected postoperativ e soft tissue swelling with deep tissue air lateral to the left hip. A battery pack projects over the right pelvis. IMPRESSION: Expected postoperative changes. ACT 112: Negative or not required by law. The above report was generated using voice recognition software. It may contain grammatical, syntax o r spelling errors. Electronically signed by: Amado Rueda M.D. 04/19/2022 7:37 PM
--- NOTE | 2022-04-19 19:42 | Anesthesiology Progress Note ---
Date of Service April 19, 2022 Anesthesia Post Procedure Vital Signs Vital Signs: Temp Pulse Resp BP Pulse Ox O2 Del Method O2 Flow Rate 04/19/22 19:35 48 L 11 L 137/68 99 Oxymask 3 04/19/22 19:25 69 11 L 152/98 H 100 Oxymask 3 04/19/22 19:15 59 L 12 140/95 100 Oxymask 4 04/19/22 19:05 37.1 C 65 20 162/104 H 100 Oxymask 5 04/19/22 14:55 36.8 C 65 18 194/81 H 96 Room Air Pain Intensity Left Hip: Pain Intensity: 5 Transfer of Care Handoff Completed per policy Notes Mental Status: alert / awake / arousable and participated in evaluation Patient Amnestic to Procedure: Yes Nausea / Vomiting: adequately controlled Pain: adequately controlled Airway Patency, RR, SpO2: stable & adequate BP & HR: stable & adequate Hydration State: stable & adequate Anesthetic Complications: no major complications apparent
[2022-04-19] MEDS ORDERED: oxyCODONE HCL IR 5 MG TAB (IMMEDIATE RELEASE) PO PRN (20:42)
[2022-04-19] MEDS ORDERED: SODIUM CHLORIDE 0.9% 1000ML 1,000 ML IV SCH (20:42)
[2022-04-19] MEDS ORDERED: diphenhydrAMINE 50 MG/ML VIAL IV PRN (20:42)
[2022-04-19] MEDS ORDERED: HYDROmorphone INJ 0.5 MG/0.5 ML SYR IV PRN (20:42)
[2022-04-19] MEDS ORDERED: METOCLOPRAMIDE HCL INJ 5 MG/ML 2 ML VIAL IV PRN (20:42)
[2022-04-19] MEDS ORDERED: ALUMINUM/MAGNESIUM SUSP 30 ML UDC PO PRN (20:42)
[2022-04-19] MEDS ORDERED: NALOXONE HCL 0.4 MG/1 ML VIAL/CARP IV PRN (20:42)
[2022-04-19] MEDS ORDERED: bisacodyL 10 MG SUPP PR PRN (20:42)
[2022-04-19] MEDS ORDERED: MAGNESIUM HYDROXIDE SUSP 30 ML UDC PO PRN (20:42)
[2022-04-19] MEDS ORDERED: TAMSULOSIN HCL 0.4 MG CAP PO PRN (20:42)
[2022-04-19] MEDS: DOCUSATE SODIUM 100 MG CAP PO SCH (21:43)
[2022-04-19] MEDS: LOSARTAN POTASSIUM 25 MG TAB PO SCH (21:43)
[2022-04-19] MEDS: SENNA 8.6 MG TAB PO SCH (21:44)
[2022-04-19] MEDS: KETOROLAC TROMETHAMINE 15 MG/ML VIAL IV SCH (21:44)
[2022-04-19] MEDS: ROSUVASTATIN CALCIUM 10 MG TAB PO SCH (21:44)
[2022-04-19] MEDS: ACETAMINOPHEN 500 MG TAB PO SCH (21:45)
[2022-04-19 23:30] LABS: Creatinine Clr Calc Pharmacy 88.5 ml/min; Est GFR (African American) 85.5 ml/min; Est GFR (Non-African American) 73.8 ml/min
[2022-04-20] MEDS: ceFAZolin 2000MG 2,000 MG/15 ML SYR IV SCH ×2 (00:55→08:22)
[2022-04-20] MEDS: VANCOMYCIN HCL 1,250 MG in SODIUM CHLORIDE 0.9% 250 ML IV SCH ×2 (01:08→13:02)
[2022-04-20] MEDS: KETOROLAC TROMETHAMINE 15 MG/ML VIAL IV SCH ×3 (02:40→14:31)
[2022-04-20] MEDS ORDERED: VANCOMYCIN HCL 1,750 MG in SODIUM CHLORIDE 0.9% 250 ML IV SCH (04:15)
--- NOTE | 2022-04-20 05:20 | Operative Report (OR) ---
DATE OF SURGERY: 04/19/2022 PREOPERATIVE DIAGNOSIS: Left hip wound infection following total joint arthroplasty. POSTOPERATIVE DIAGNOSES: Left hip wound infection following total joint arthroplasty. OPERATION PERFORMED: 1. Irrigation and debridement of left hip wound down to bone and joint. 2. Left hip polyethylene exchange and femoral head exchange. SURGEON: Jeff Nguyen MD TRANSITION PROGRAM MANAGER: Isidro Kenney PA-C and Agnes Dorsey PA-C. No resident or fellow was available to assist. IV FLUIDS: 900 cc crystylloid, 2 units packed red blood cells ESTIMATED BLOOD LOSS: 800 mL SPECIMENS: Two tissue cultures and two swab cultures. COMPLICATIONS: None. IMPLANTS: 1. Monroe Altrex polyethylene liner, 56 mm outer diameter and 36 mm inner diameter. 2. Biolox Delta ceramic femoral head, 36 mm diameter with +12 offset. INDICATIONS: The patient is a 71-year-old male who is status post a left total hip arthroplasty by myself on 03/18/2022. Surgery was uncomplicated. However, postoperatively, he fell on 03/26/2022 at home resulting in a traumatic wound dehiscence of the distal aspect of his wound. He presented to the Emergency Room where orthopedics was consulted. My partner was integration lead and performed a primary wound closure in the Emergency Room with lisa after irrigating out the wound. The patient has been on oral Keflex since that time. Initially his wound was seeming to heal appropriately, with a gradual decrease the amount of drainage. However, over the weekend, he started to develop redness around the wound and increasing drainage as well as enlarging hypertrophic granulation tissue at the distal end of the wound. He was instructed to come into clinic today after he emailed us pictures of his wound. I saw and examined him in the clinic. His wound findings were concerning for infection and therefore, it was recommended he be taken to the operating room for formal irrigation and debridement of his wound with the possibility of a polyethylene exchange and femoral head exchange. After reviewing all the risks and benefits of surgery, alternatives, and expected outcomes, he elected to proceed. All questions were answered. Informed consent was signed. OPERATIVE FINDINGS: The wound was clearly infected. The infection tracked through the fascia all the way down to the joint. Hypertrophic granulation tissue was ellipsed out. The entirety of his wound was opened up. The wound was thoroughly debrided and a femoral head and polyethylene exchange was performed. Stimulan antibiotic beads were placed below the fascia at the conclusion of the case. DESCRIPTION OF OPERATION: The patient was identified in the preoperative holding area where his surgical site was marked. He was brought back to the main operating room where he was placed on the operating room table and general anesthesia was administered. He was carefully rolled up into the lateral decubitus position. All bony prominences were padded. Perioperative antibiotics were held until cultures were obtained. 1 gram of IV tranexamic acid was administered. He was then prepped and draped in the usual sterile fashion. Prior to incision, a multidisciplinary timeout was called. All in the room were in agreement. We began by ellipsing out the hypertrophic tissue at the distal aspect of his incision as well as the abnormal-appearing scar, which had small areas of purulence under the skin. The length of this abnormal skin was approximately 8 cm. Immediately upon going below the skin, a pocket was noted in the subcutaneous tissues. A sterile swab was inserted through this pocket and tracked easily into a large subcutaneous pocket and through the fascia. The swab was sent for culture, labeled superficial swab. I then completed ellipsing out including the skin and underlying subcutaneous tissue which was sent for tissue culture and permanent section. It was clear that there was a large area of infection underneath the skin that tracked proximally and therefore, the remainder of the wound was then opened up proximally. I also extended the wound distally for another 3 cm. Total length of the incision was measured approximately 26 cm. Meticulous hemostasis was ensured. We dissected down through subcutaneous tissues. As stated above, there was a violation of the fascia in the mid and distal portions of the wound, which tracked down to the joint. There was a large softball diameter area of arthur and yellow slimy infected-appearing mucous that was evacuated. I then raised some subcutaneous planes above the fascia distally to facilitate closure at the end of the case. I released his gluteal sling approximately 1.5 cm off the insertion on to the linea aspera to facilitate exposure. We then exposed the hip joint. The hip was dislocated and the femoral head was removed with a bone tamp and mallet. The femoral component was grossly stable and was left in place. We then excised portions of the hip capsule anterosuperiorly to create a pocket for the trunnion of the femoral neck. This was done with electrocautery. Inferior capsular tissue was also excised. Mushtaq care was taken to identify and protect the sciatic nerve. I then very carefully removed any abnormal synovial lining along the posterior capsular flap. We exposed all the tabs of the polyethylene and we were able to retract the femoral component out of the way anteriorly. I then removed the polyethylene liner with the Dwell[employer]ware extracting tool. The inner shell was stable. There was no significant evidence of infection underneath the polyethylene. The metal shell was scrubbed out. We then continued our debridement of the remainder of the wound. There was some friable tissue overlying the trochanteric bursa as well as the gluteus medius, which was scraped off gently with a curette. The margins of the fascial incision were debrided. All areas of firm, abnormal scar tissue were excised. Once we had completed our thorough wound debridement, we then irrigated out the wound with 9 L of normal saline. We then changed our gloves and opened up a new polyethylene liner. This was impacted into the shell and we checked the locking mechanism, which engaged appropriately. Next, we trialed a new femoral head with + 12 offset. The femoral head we removed was a +8, but when he fell and dehisced his wound, he slightly subsided his femoral stem so I wanted to give him more leg length and offset. We then reduced the hip and I was happy with his leg lengths. He was stable in the sleeper position. He was stable in extension and external rotation. At 90 degrees of hip flexion, he could be internally rotated approximately 50 degrees before beginning to lever out of the cup. I was very happy with the stability exam. We therefore opened up a 36 mm diameter ceramic femoral head with a +12 offset. This was gently impacted on the trunnion and the hip was atraumatically reduced. Next, a capsular repair was performed using #1 PDS suture through the posterior capsular layer. The external rotators were not available. The PDS sutures were tied over a bone bridge through his previous bone tunnels. I then removed the Charnley retractor and placed Stimulan beads into the wound below the fascia. These contained a total of 160 grams of gentamicin and 1 gram of vancomycin. The patient also received 3 grams of IV Ancef as well as 1 gram of vancomycin after we had collected all of our cultures. The wound was then closed in layers using #1 looped PDS for the fascia. The deep subcutaneous layer was closed with running #1 PDS. The skin was closed with 2-0 Prolene in a horizontal mattress fashion. A Prevena wound VAC was placed. He was then carefully rolled supine and transferred on to the hospital bed where he was extubated and then transferred to the recovery room in stable condition. POSTOPERATIVE COURSE: The patient received 1 unit of packed red blood cells in the operating room and another one infusing as he headed for the recovery room. We will check his H and H tomorrow as his estimated blood loss was 800 mL. We will keep him on empiric vancomycin and Ancef until his wound cultures come back. Blood cultures were ordered to be drawn this evening. He will be weightbearing as tolerated with posterior hip precautions. Aspirin for DVT prophylaxis. Job ID: [id number] [facility] HOSPITALShanelle
[2022-04-20] MEDS: ACETAMINOPHEN 500 MG TAB PO SCH ×3 (05:42→22:13)
[2022-04-20 07:20] LABS: Basophils # (auto) 0.01 K/uL (0-0.2); Basophils % (auto) 0.1 %; Hemoglobin 9.7 g/dl (14.0-18.0); Immature Granulocytes # (auto) 0.07 K/uL (0.00-0.02); Immature Granulocytes % (auto) 0.6 %; Lymphocytes % (auto) 8.7 %; Mean Corpuscular Hemoglobin 29.5 pg (25.0-34.0); Mean Corpuscular Hgb Conc 32.3 g/dL (32.0-36.0); Mean Corpuscular Volume 91.2 fL (80.0-100.0); Mean Platelet Volume 8.6 fL (9.4-12.4); Monocytes # (auto) 0.59 K/uL (0.24-0.82); Monocytes % (auto) 5.1 %; Neutrophils # (auto) 9.83 K/uL (1.4-6.5); Neutrophils % (auto) 85.5 %; Platelet Count 290 K/uL (130-400); RDW Coefficient of Variation 13.7 % (11.5-14.5); RDW Standard Deviation 45.9 fL (36.4-46.3); Red Blood Count 3.29 M/uL (4.63-6.08)
[2022-04-20 07:38] LABS: BUN Creatinine Ratio 18.2 (10-20); C Reactive Protein 3.99 mg/dl (0-0.5); Calcium 8.3 mg/dl (8.5-10.1); Creatinine Clr Calc Pharmacy 82.8 ml/min; Est GFR (Non-African American) 68.1 ml/min
--- NOTE | 2022-04-20 07:46 | Orthopedic Progress Note ---
Date of Service April 20, 2022 Assessment & Plan (1) Status post total hip replacement, left: (2) Wound infection, posttraumatic: Plan: On IV vancomycin and Ancef. Rifampin added this morning due to orthopaedic hardware in place. ID consulted Continue to follow cultures PT/OT daily Posterior hip precautions Aspirin for DVT prophylaxis Going to need PICC line and residential IV antibiotics Possible return to OR this for second washout of his wound Admission and Anticipated Discharge Date Admission Date: April 19, 2022 Subjective POD 1 s/p Left hip wound I and D with polyethylene exchange and femoral head exchange. He has done well overnight. Pain well controlled. No fevers or chills. He got up to walk with his walker. Physical Exam Physical Exam: A&O x 3, well appearing L hip: Prevena wound vac in place, functioning appropriately, minimal drainage canister. Results & Data ([facility]) Vital Signs (Past 12 Hours) Vital Signs Temp Pulse Pulse Resp BP Pulse Ox O2 Del Method 04/20/22 02:43 36.4 C L 51 L 16 139/77 97 Room Air 04/19/22 20:30 Room Air 04/19/22 23:30 36.3 C L 50 L 18 110/71 97 Room Air 04/19/22 21:30 36.3 C L 55 L 18 117/74 96 Room Air 04/19/22 21:00 36.3 C L 56 L 18 114/65 97 Room Air 04/19/22 20:30 36.4 C L 55 L 18 129/83 98 Nasal Cannula 04/19/22 20:10 53 L 13 150/73 H 96 Nasal Cannula 04/19/22 19:55 36.5 C 49 L 14 138/71 92 Nasal Cannula 04/19/22 19:45 36.5 C 49 L 15 139/65 98 Room Air O2 Flow Rate 04/20/22 02:43 04/19/22 20:30 04/19/22 23:30 04/19/22 21:30 04/19/22 21:00 04/19/22 20:30 2.0 04/19/22 20:10 2 04/19/22 19:55 2 04/19/22 19:45 Diagnostic Findings Wound and blood culture results not back yet this AM
[2022-04-20] MEDS: MULTIVITAMIN TAB PO SCH (08:22)
[2022-04-20] MEDS: allopurinoL 100 MG TAB PO SCH (08:22)
[2022-04-20] MEDS: ASCORBIC ACID 500 MG TAB PO SCH ×2 (08:22→17:06)
[2022-04-20] MEDS: FERROUS GLUCONATE 324 MG TAB PO SCH ×2 (08:22→17:06)
[2022-04-20] MEDS: ASPIRIN 81 MG ECTAB PO SCH (08:22)
[2022-04-20] MEDS: rifAMPin 300 MG CAPSULE PO SCH ×2 (09:32→20:13)
[2022-04-20] MEDS: DOCUSATE SODIUM 100 MG CAP PO SCH ×2 (09:32→20:10)
--- NOTE | 2022-04-20 11:11 | Pharmacy Report ---
Pharmacy PK ABX Note - Date of Service April 20, 2022 - Assessment and Plan Assessment 71 year old M receiving Vancomycin and Rifampin for treatment of traumatic wound dehiscence of L REAGAN site. * PMHx significant for recent hospitalization on 03/18/22 for L REAGAN. Adverse reaction listed to Amoxicillin (nausea/vomiting). * Fell at home 10 days after surgery and had traumatic wound dehiscence. Seen in ED, underwent bedside irrigation and wound closure. Has been on oral Cephalexin since that time. However, drainage continued from wound so he was directly admitted to hospital from ortho office yesterday. * POD #1 s/p I&D of L hip wound. May require another washout later this week per ortho. * Afebrile with leukocytosis of 11,500. ESR and CRP are elevated. Blood cultures and OR cultures are pending. * ID consult is pending. Plan Vancomycin * Loading dose: 1000 mg IV + 750 mg IV intra-op * Maintenance dose: 1250 mg IV every 12 hours * Regimen is predicted to achieve target AUC/RRII of 400-600 mg/L.hr * Trough level ordered for 04/21/22 Rifampin * 300 mg PO BID Pharmacy will continue to follow and will adjust dose/frequency as necessary. Thank you. Pharmacy has transitioned to AUC monitoring for vancomycin. AUC/RIRI is the preferred PK/PD target and is associated with decreased risk of nephrotoxicity compared to traditional trough targets.
[2022-04-20] MEDS: LOSARTAN POTASSIUM 25 MG TAB PO SCH (20:12)
[2022-04-20] MEDS: SENNA 8.6 MG TAB PO SCH (20:14)
[2022-04-20] MEDS: ROSUVASTATIN CALCIUM 10 MG TAB PO SCH (20:14)
[2022-04-21] MEDS: VANCOMYCIN HCL 1,250 MG in SODIUM CHLORIDE 0.9% 250 ML IV SCH ×2 (00:39→13:56)
[2022-04-21] MEDS: ACETAMINOPHEN 500 MG TAB PO SCH ×3 (05:49→21:34)
[2022-04-21] MEDS: FERROUS GLUCONATE 324 MG TAB PO SCH ×2 (08:35→16:50)
[2022-04-21] MEDS: MULTIVITAMIN TAB PO SCH (08:35)
[2022-04-21] MEDS: allopurinoL 100 MG TAB PO SCH (08:35)
[2022-04-21] MEDS: ASPIRIN 81 MG ECTAB PO SCH (08:35)
[2022-04-21] MEDS: ASCORBIC ACID 500 MG TAB PO SCH ×2 (08:36→16:50)
[2022-04-21] MEDS: rifAMPin 300 MG CAPSULE PO SCH ×2 (08:36→20:19)
[2022-04-21] MEDS: DOCUSATE SODIUM 100 MG CAP PO SCH ×2 (08:37→20:17)
[2022-04-21 09:42] LABS: Creatinine Clr Calc Pharmacy 102.4 ml/min; Est GFR (African American) 101.1 ml/min; Est GFR (Non-African American) 87.2 ml/min
--- NOTE | 2022-04-21 10:56 | Orthopedic Progress Note ---
Date of Service April 21, 2022 Assessment & Plan (1) Status post total hip replacement, left: Plan: Patient was informed that he will likely be taken to the OR tomorrow morning for an additional washout and possible poly exchange. He should maintain his total hip precautions. It was emphasized to him that he needs to decrease his overall activity, and that his biggest problem is often that he is doing too much. Patient will be made n.p.o. after midnight tonight. Consent will be obtained this afternoon by Dr. Nguyen. Continue with DVT prophylaxis using aspirin, EMILY hose, and foot pumps. Admission and Anticipated Discharge Date Admission Date: April 19, 2022 Subjective Patient is seen in his room this morning. States he has very little pain. He has been out of bed and has walked the hallways 3 times. He states he is bored and would like to go home. He denies any fevers or chills. No other complaints. No chest pain, shortness of breath, nausea, or vomiting. Physical Exam Physical Exam: General: Well-developed, well-nourished, elderly male, in no acute distress. Sitting in bed. Conversive. Oriented. Skin: Warm and dry with fair turgor. No rashes. He does appear pale. His Prevena wound VAC is in place on the left hip. It is functioning. Scant drainage. Musculoskeletal: Patient has intact motor function to the left leg. He is able to flex his hip and knee. No significant pain with logrolling of the hip. Neurologic: Gross sensation is intact across both lower extremities by soft touch. Peripheral pulses are 2+. Foot pumps are in place. Results & Data ([facility]) Vital Signs (Past 12 Hours) Vital Signs Temp Pulse Pulse Resp BP Pulse Ox O2 Del Method 04/21/22 08:00 Room Air 04/21/22 07:55 36.4 C L 63 12 124/68 95 Room Air 04/21/22 06:17 36.6 C 58 L 16 144/77 H 97 Room Air 04/20/22 22:57 36.6 C 58 L 16 137/69 96 Room Air Laboratory Results Blood culture shows no growth yet. There is pinpoint growth on his wound cultures. They are reincubating. Pathology is still pending.
[2022-04-21] MEDS ORDERED: VANCOMYCIN TROUGH LEVEL ONE (12:30)
[2022-04-21] MEDS ORDERED: PIPERACILLIN/TAZOBACTAM 4.5 GM in DEXTROSE 5% 100 ML IV ONE (13:00)
--- NOTE | 2022-04-21 13:46 | Pharmacy Report ---
Pharmacy PK ABX Note - Date of Service April 21, 2022 - Assessment and Plan Assessment 71 year old M receiving Vancomycin and Rifampin for treatment of traumatic wound dehiscence of L REAGAN site. * PMHx significant for recent hospitalization on 03/18/22 for L REAGAN. Adverse reaction listed to Amoxicillin (nausea/vomiting). * Fell at home 10 days after surgery and had traumatic wound dehiscence. Seen in ED, underwent bedside irrigation and wound closure. Has been on oral Cephalexin since that time. However, drainage continued from wound so he was directly admitted to hospital from ortho office yesterday. * POD #2 s/p I&D of L hip wound. Will return to OR tomorrow for washout (04/22). * Afebrile with leukocytosis of 11,500. ESR and CRP are elevated. Blood cultures and OR cultures are pending. * ID consult is pending. Today is day #3 of abx. Plan Vancomycin * Current regimen: 1250 mg IV every 12 hours * Trough level obtained 04/21/22 resulted as < 3 mcg/mL, which is undetectable. * Do not believe this trough level is accurate and may be a result of lab error. * Will continue with 1250 mg dose this afternoon and order a random level for 2200 this evening. Rifampin * 300 mg PO BID Pharmacy will continue to follow and will adjust dose/frequency as necessary. Thank you. Pharmacy has transitioned to AUC monitoring for vancomycin. AUC/RIRI is the preferred PK/PD target and is associated with decreased risk of nephrotoxicity compared to traditional trough targets.
[2022-04-21] MEDS: PIPERACILLIN/TAZOBACTAM 4.5 GM in DEXTROSE 5% 100 ML IV SCH (17:28)
[2022-04-21] MEDS: LOSARTAN POTASSIUM 25 MG TAB PO SCH (20:18)
[2022-04-21] MEDS: ROSUVASTATIN CALCIUM 10 MG TAB PO SCH (20:18)
[2022-04-21] MEDS: SENNA 8.6 MG TAB PO SCH (20:19)
[2022-04-22] MEDS: VANCOMYCIN HCL 1,500 MG in SODIUM CHLORIDE 0.9% 500 ML IV SCH ×2 (00:01→11:58)
[2022-04-22] MEDS: PIPERACILLIN/TAZOBACTAM 4.5 GM in DEXTROSE 5% 100 ML IV SCH ×2 (02:59→11:15)
[2022-04-22] MEDS: ACETAMINOPHEN 500 MG TAB PO SCH ×3 (06:08→21:17)
[2022-04-22 07:45] LABS: Creatinine Clr Calc Pharmacy 100.1 ml/min; Est GFR (African American) 99.3 ml/min; Est GFR (Non-African American) 85.7 ml/min
--- NOTE | 2022-04-22 07:56 | Orthopedic Progress Note ---
Date of Service April 22, 2022 Assessment & Plan (1) Status post total hip replacement, left: (2) Wound infection, posttraumatic: Plan: On IV vancomycin and zosyn and oral rifampin Continue to follow cultures for sensitivities. ID consulted but has not seen yet PICC line to be placed this morning. PICC line consent form completed Will do another irrigation and debridement, possible poly exchange of his left hip this afternoon. Reviewed risks/benefits of surgery, alternatives and expected outcomes. Informed consent signed. Posterior hip precautions Aspirin for DVT prophylaxis Re-admit to hospital after surgery. Possible discharge home tomorrow, if arrangements can be made for his home antibiotic therapy, and he does well overnight after surgery. Admission and Anticipated Discharge Date Admission Date: April 19, 2022 Subjective Patient's cultures grew enterococcus yesterday. Sensitivities not back yet. Zosyn added to Vancomycin and Rifampin until sensitivities back. Blood cultures negative at 48 hours. States he has very little pain. He denies any fevers or chills. No chest pain, shortness of breath, nausea, or vomiting. Physical Exam Physical Exam: A&O x 3, well appearing L hip: Prevena wound vac in place, functioning appropriately, minimal drainage canister. Results & Data ([facility]) Vital Signs (Past 12 Hours) Vital Signs Temp Pulse Resp BP Pulse Ox O2 Del Method 04/22/22 07:15 36.6 C 73 14 128/76 95 Room Air 04/21/22 20:15 Room Air 04/21/22 22:12 36.7 C 68 18 148/90 H 95 Room Air
[2022-04-22] MEDS: DOCUSATE SODIUM 100 MG CAP PO SCH ×2 (08:07→20:13)
[2022-04-22] MEDS: allopurinoL 100 MG TAB PO SCH (08:08)
[2022-04-22] MEDS: ASCORBIC ACID 500 MG TAB PO SCH ×2 (08:08→16:40)
[2022-04-22] MEDS: FERROUS GLUCONATE 324 MG TAB PO SCH ×2 (08:08→16:40)
[2022-04-22] MEDS: rifAMPin 300 MG CAPSULE PO SCH ×2 (08:08→20:16)
[2022-04-22] MEDS: MULTIVITAMIN TAB PO SCH (08:09)
[2022-04-22] MEDS: ASPIRIN 81 MG ECTAB PO SCH (08:09)
[2022-04-22] MEDS ORDERED: MIDAZOLAM HCL 1 MG/ML 2ML VIAL ONE (11:43)
[2022-04-22] MEDS ORDERED: fentaNYL citrate 100 MCG/2 ML VIAL ONE ×2 (11:43→13:36)
--- NOTE | 2022-04-22 11:58 | Anesthesiology Consultation ---
Date of Service April 22, 2022 Assessment & Plan (1) Encounter for pre-operative examination: Chart Review Chart Review: Acceptable Risk for Surgery and Patient NOT seen in Pre Admission Testing Consults Requested none History Surgery Operation Date: 04/19/22 11:35 Proposed Procedures p Irrigation and Debridement of Left Hip Wound, - Jeff Nguyen MD s Possible Hip Left Polyethylene Exchange - Jeff Nguyen MD Operation Date: 04/22/22 12:55 Proposed Procedures p Repeat Irrigation and Debridement Left Hip Wound possible - Jeff Nguyen MD s Polyethylene Exchange - Jeff Nguyen MD Height/Weight Height: 5 ft 10.5 in Weight: 119.777 kg Allergies Allergy/AdvReac Type Severity Reaction Status Date / Time amoxicillin AdvReac Mild N/V Verified 04/19/22 14:48 Medications Home Medications Medication Instructions Recorded Confirmed Last Taken allopurinol 100 mg tablet 100 mg PO QAM 09/25/21 04/19/22 04/19/22 05:30 apple cider vinegar 600 mg capsule 1,200 mg PO BID 09/25/21 04/19/22 04/18/22 21:30 cholecalciferol (vitamin D3) 125 125 mcg PO QAM 09/25/21 04/19/22 04/19/22 05:30 mcg (5,000 unit) tablet (Vitamin D3) coenzyme Q10 100 mg capsule (Co 100 mg PO PM 09/25/21 04/19/22 04/18/22 21:00 Q-10) cranberry 500 mg capsule 500 mg PO PM 09/25/21 04/19/22 04/18/22 21:00 cyanocobalamin (vitamin B-12) 500 500 mcg PO QAM 09/25/21 04/19/22 04/12/22 mcg tablet garlic 1,000 mg capsule 1,000 mg PO PM 09/25/21 04/19/22 04/18/22 21:00 losartan 25 mg tablet 25 mg PO PM 09/25/21 04/19/22 04/18/22 21:00 multivitamin 1 tab PO QAM 09/25/21 04/19/22 04/18/22 omega-3 fatty acids 1,000 mg PO PM 09/25/21 04/19/22 04/12/22 rosuvastatin 10 mg tablet (Crestor) 10 mg PO PM 09/25/21 04/19/22 04/18/22 21:00 zinc 100 mg tablet 50 mg PO QAM 09/25/21 04/19/22 04/12/22 acetaminophen 500 mg tablet 1,000 mg PO Q8 #30 tabs 03/19/22 04/19/22 Unknown (Tylenol Extra Strength) diclofenac sodium 75 mg 75 mg PO BID PRN pain #28 tabs 03/19/22 04/19/22 04/19/22 05:30 tablet,delayed release oxycodone 5 mg tablet 5 mg PO Q4H PRN pain #18 tabs 03/19/22 04/19/22 Unknown aspirin 81 mg chewable tablet 81 mg PO DAILY 04/19/22 04/19/22 04/19/22 05:30 cephalexin 500 mg capsule 500 mg PO TID 04/19/22 04/19/22 04/19/22 05:30 Active Medications Generic Name Dose Route Start Last Admin Trade Name Freq PRN Reason Stop Dose Admin Acetaminophen 1,000 mg 04/19/22 22:00 04/22/22 06:08 Acetaminophen 500 Mg Tab PO 05/19/22 21:59 1,000 mg Q8 MARCUS Administration Allopurinol 100 mg 04/20/22 09:00 04/22/22 08:08 Allopurinol 100 Mg Tab PO 05/20/22 08:59 100 mg QAM MARCUS Administration Ascorbic Acid 500 mg 04/20/22 08:00 04/22/22 08:08 Ascorbic Acid 500 Mg Tab PO 05/20/22 07:59 500 mg BIDM MARCUS Administration Aspirin 81 mg 04/20/22 09:00 04/22/22 08:09 Aspirin 81 Mg Ectab PO 05/20/22 08:59 81 mg DAILY MARCUS Administration Docusate Sodium 100 mg 04/19/22 21:00 04/22/22 08:07 Docusate Sodium 100 Mg Cap PO 05/19/22 20:59 100 mg BID MARCUS Administration Ferrous Gluconate 324 mg 04/20/22 08:00 04/22/22 08:08 Ferrous Gluconate 324 Mg Tab PO 05/20/22 07:59 324 mg BIDM MARCUS Administration Piperacillin Sod/Tazobactam 120 mls @ 30 mls/hr 04/21/22 18:00 04/22/22 11:15 Sod 4.5 gm/ Dextrose IV 06/02/22 17:59 30 mls/hr Q8H MARCUS Administration Protocol Vancomycin HCl 1,500 mg/ 530 mls @ 200 mls/hr 04/22/22 00:00 04/22/22 11:58 Sodium Chloride IV 06/03/22 00:00 200 mls/hr Q12H MARCUS Administration Losartan Potassium 25 mg 04/19/22 21:00 04/21/22 20:18 Losartan Potassium 25 Mg Tab PO 05/19/22 20:59 25 mg PM MARCUS Administration Multivitamins 1 tab 04/20/22 09:00 04/22/22 08:09 Multivitamin Tab PO 05/20/22 08:59 1 tab QAM MARCUS Administration Oxycodone HCl 5 - 10 mg 04/19/22 20:42 04/19/22 21:15 Oxycodone Hcl Ir 5 Mg Tab (Immediate Release) PO 05/03/22 20:41 10 mg Q4H PRN Administration Pain or Pre PT Rifampin 300 mg 04/20/22 09:00 04/22/22 08:08 Rifampin 300 Mg Capsule PO 06/01/22 08:59 300 mg BID MARCUS Administration Rosuvastatin Calcium 10 mg 04/19/22 21:00 04/21/22 20:18 Rosuvastatin Calcium 10 Mg Tab PO 05/19/22 20:59 10 mg PM MARCUS Administration Sennosides 17.2 mg 04/19/22 21:00 04/21/22 20:19 Senna 8.6 Mg Tab PO 05/19/22 20:59 17.2 mg HS MARCUS Administration NPO Date Last Intake of Fluids: 04/21/22 Time Last Intake of Fluids: 23:59 Date Last Intake of Solids: 04/21/22 Time Last Intake of Solids: 23:59 Past Medical History Medical History Anemia Aortic aneurysm 3.7cm > monitored by Dr. Vega in [place] CAD (coronary artery disease) s/p CABG x 3 in 2010, follows with Dr. Vega Degenerative disc disease Diverticular disease last diverticulitis episode 8 yrs ago Hx of gout Hyperlipidemia Hypertension controlled, stable per pt with home readings 120-130/80s consistently; has white coat HTN PVC (premature ventricular contraction) Spinal cord stimulator status instructed to bring controller DOS Past Family History Family History Mother Heart disease Father Heart disease Other COPD (chronic obstructive pulmonary disease) Colorectal cancer Diabetes Hypertension Liver cancer Prostate cancer Past Surgical History Surgical History H/O umbilical hernia repair History of cardiac cath Jul 2011 > no stents--CABG x 3. History of cataract surgery bilat History of colonoscopy History of tooth extraction History of total knee replacement bilat Hx of repair of right rotator cuff 10/12/21: LMA#5 + PNB. Hx of thumb surgery bilat trigger finger releases S/P tendon repair left foot S/P triple vessel bypass Jul 2011 [facility] Status post total hip replacement, left Social History Smoking Status: Former smoker tobacco type: e-cigarettes Do You Dip or Chew Tobacco: No Hx Alcohol Use: Yes Alcohol type: beer alcohol intake frequency: 0-2 drinks per day Alcohol Intake Frequency Comment: two to three beers a day Hx Substance Use: No substance use type: does not use Physical Exam Vital Signs Last Vital Signs Temp 36.6 C 04/22/22 07:15 Pulse 73 04/22/22 07:15 Resp 14 04/22/22 07:15 BP 128/76 04/22/22 07:15 Pulse Ox 95 04/22/22 07:15 O2 Del Method 04/22/22 07:15 O2 Flow Rate 2.0 04/19/22 20:30 Testing Laboratory Results 04/20/22 07:12 04/22/22 06:48 Blood Type O Positive 04/19/22 17:10 Antibody Screen NEGATIVE 04/19/22 17:10 04/19/22 20:55 Aerobic Blood Culture - Preliminary Blood No growth in Aerobic bottle after 48 hours. Anaerobic Blood Culture - Preliminary No growth in Anaerobic bottle after 48 hours. 04/19/22 21:04 Aerobic Blood Culture - Preliminary Blood No growth in Aerobic bottle after 48 hours. Anaerobic Blood Culture - Preliminary No growth in Anaerobic bottle after 48 hours. 04/19/22 16:18 Gram Stain - Final Hip,Left Aerobic and Anaerobic Culture - Preliminary Probable Enterococcus 04/19/22 16:25 Gram Stain - Final Hip,Left Aerobic and Anaerobic Culture - Preliminary Probable Enterococcus 04/19/22 16:18 Gram Stain - Final Hip,Left Aerobic and Anaerobic Culture - Preliminary Pin-point growth present, reincubating. Electrocardiogram Date: 10/01/21 Findings: + SB @ (56) ventricular conduction delay
[2022-04-22] MEDS ORDERED: ePHEDrine sulfate 50 MG/ML AMP IV PRN (12:00)
[2022-04-22] MEDS ORDERED: MEPERIDINE HCL 25 MG/ML CARP/VIAL IV PRN (12:00)
[2022-04-22] MEDS ORDERED: ONDANSETRON INJ 2 MG/ML 2 ML VIAL IV PRN ×2 (12:00→14:36)
[2022-04-22] MEDS ORDERED: PHENYLEPHRINE 100MCG/ML 5ML SYR IV PRN (12:00)
[2022-04-22] MEDS ORDERED: HYDROmorphone INJ 1 MG/ML SYRINGE IV PRN (12:00)
[2022-04-22] MEDS ORDERED: LABETALOL HCL IV 5 MG/ML 20ML IV PRN (12:00)
[2022-04-22] MEDS ORDERED: ATROPINE SULFATE 0.1 MG/ML 10ML SYR IV PRN (12:00)
[2022-04-22 12:23] LABS: Hematocrit (blood only) 25.2 % (40.1-51.0); Hemoglobin 8.1 g/dl (14.0-18.0)
[2022-04-22] MEDS ORDERED: SODIUM CHLORIDE 0.9% 250 ML IV PRN (12:27)
[2022-04-22] MEDS ORDERED: ceFAZolin 330 MG/ML 1 GM VIAL ONE (12:58)
[2022-04-22] MEDS ORDERED: TRANEXAMIC ACID / 0.7% NACL 1000MG/100ML BAG IV ONE (13:08)
[2022-04-22] MEDS ORDERED: TRANEXAMIC ACID / 0.7% NACL 1,000 MG/100 ML BAG IV ONE ×2 (13:10)
[2022-04-22] MEDS ORDERED: VANCOMYCIN HCL 1000MG/20ML VIAL ONE (13:28)
[2022-04-22] MEDS ORDERED: GENTAMICIN SULFATE 40 MG/ML 2 ML VIAL ONE (13:28)
[2022-04-22] MEDS ORDERED: HYDROmorphone INJ 2 MG/ML SYR/VIAL ONE (14:15)
--- NOTE | 2022-04-22 14:34 | Operative Report ---
Post Operative Report Pre & Post Diagnosis Operation Date: 04/19/22 11:35 Pre-Op Diagnosis: Disruption Traumatic Injury Wound Repair Initial Post-Op Diagnosis: Disruption Traumatic Injury Wound Repair Initial Operation Date: 04/22/22 12:55 Pre-Op Diagnosis: Left Hip Wound Infection Post-Op Diagnosis: Left Hip Wound Infection I identified the patient and participated in the time-out.: Yes Procedure Operation Date: 04/19/22 11:35 Actual Procedures s Irrigation and Debridement of Left Hip Wound.(Left) - Jeff Nguyen MD p Hip Left Polyethylene Exchange(Left) - Jeff Nguyen MD Operation Date: 04/22/22 12:55 Actual Procedures p Repeat Irrigation and Debridement Left Hip Wound(Left) - Jeff Nguyen MD Surgeon Jeff Nguyen MD Inspecting Supervisor Devang Bose PA-C Estimated Blood Loss 50 Findings Consistent with Post-Op Diagnosis Specimens none Description of Procedure I was present during the entire procedure assisting with positioning, prepping, draping, wound retraction, wound closure, and Prevena application. No fellow present. Please see Dr. Nguyen procedure note for specifics of the case. I attest to the content of the Intraoperative Record and any orders documented therein. Any exceptions are noted below.
[2022-04-22] MEDS ORDERED: TAMSULOSIN HCL 0.4 MG CAP PO PRN (14:36)
[2022-04-22] MEDS ORDERED: MAGNESIUM HYDROXIDE SUSP 30 ML UDC PO PRN (14:36)
[2022-04-22] MEDS ORDERED: oxyCODONE HCL IR 5 MG TAB (IMMEDIATE RELEASE) PO PRN ×2 (14:36→14:41)
[2022-04-22] MEDS ORDERED: diphenhydrAMINE 50 MG/ML VIAL IV PRN (14:36)
[2022-04-22] MEDS ORDERED: bisacodyL 10 MG SUPP PR PRN (14:36)
[2022-04-22] MEDS ORDERED: METOCLOPRAMIDE HCL INJ 5 MG/ML 2 ML VIAL IV PRN (14:36)
[2022-04-22] MEDS ORDERED: NALOXONE HCL 0.4 MG/1 ML VIAL/CARP IV PRN (14:36)
[2022-04-22] MEDS ORDERED: ALUMINUM/MAGNESIUM SUSP 30 ML UDC PO PRN (14:36)
[2022-04-22] MEDS ORDERED: LIDOCAINE 2% MPF LOCAL 5 ML VIAL INFIL ONE (14:55)
[2022-04-22] MEDS ORDERED: PROPOFOL IV EMULSION 10 MG/ML 20 ML VIAL IV ONE (14:55)
[2022-04-22] MEDS ORDERED: LABETALOL HCL IV 5 MG/ML 20ML IV ONE (14:55)
[2022-04-22] MEDS ORDERED: ONDANSETRON INJ 2 MG/ML 2 ML VIAL ONE (14:55)
[2022-04-22] MEDS ORDERED: ROCURONIUM BROMIDE 10 MG/ML 5 ML VIAL IV ONE (14:55)
[2022-04-22] MEDS: fentaNYL citrate 100 MCG/2 ML VIAL IV PRN ×3 (15:12→15:21)
--- NOTE | 2022-04-22 15:12 | Operative Report ---
Post Operative Report Pre & Post Diagnosis Operation Date: 04/19/22 11:35 Pre-Op Diagnosis: Disruption Traumatic Injury Wound Repair Initial Post-Op Diagnosis: Disruption Traumatic Injury Wound Repair Initial Operation Date: 04/22/22 12:55 Pre-Op Diagnosis: Left Hip Wound Infection, status post left total hip arthroplasty Post-Op Diagnosis: Left Hip Wound Infection, status post left total hip arthroplasty I identified the patient and participated in the time-out.: Yes Procedure Operation Date: 04/19/22 11:35 Actual Procedures s Irrigation and Debridement of Left Hip Wound.(Left) - Jeff Nguyen MD p Hip Left Polyethylene Exchange(Left) - Jeff Nguyen MD Operation Date: 04/22/22 12:55 Actual Procedures p Repeat Irrigation and Debridement Left Hip Wound(Left) - Jeff Nguyen MD Surgeon Jeff Nguyen MD Educational/Development Assistant Devang Bose PA-C. No resident or fellow was available to assist. Estimated Blood Loss 50 Findings Consistent with Post-Op Diagnosis Specimens Left hip wound, deep culture of subfascial hematoma Complications none Disposition Disposition: Recovery Room Indications 71-year-old male, presented to my clinic on Tuesday this week, 3 days ago, with hypertrophic granulation tissue and a draining left hip wound following primary closure of a traumatic wound dehiscence sustained as a result of a fall 12 days after left total hip arthroplasty. He was taken to the operating room Tuesday afternoon for irrigation debridement and polyethylene exchange with placement of antibiotic beads. His wound was grossly infected at that time. Cultures were taken. These of started to grow out Enterococcus. I had a long discussion with him about a return trip to the operating room. This was indicated to further clean his wound and eradicate the infection. After reviewing all the risks and benefits of surgery, alternatives and expected outcomes he elected to proceed. All questions were answered. Informed consent was signed. Description of Procedure Patient was identified in the preoperative holding area where his surgical site was marked. He was brought back to the main operating room where he was placed in the operating table and general anesthesia was administered. He was carefully moved in the lateral decubitus position. Axillary roll was placed. H is pelvis was stabilized with a Stulberg positioner. His preoperative hemoglobin was 8.1 and therefore a unit of packed red blood cells was started. He was also given 1 g of IV tranexamic acid. He had been on aspirin for DVT prophylaxis which was continued following his I&D on Tuesday. IV antibiotics had already been administered on the floor to include Zosyn and vancomycin as well as oral rifampin. His Prevena wound VAC was removed. He was then prepped and draped in the usual sterile fashion. Prior to incision a multidiscipline timeout was called. All in the room were in agreement. We began by opening up his previous wound and removing all the 2-0 Prolene sutures. The PDS suture in the subcutaneous layer was also removed in its entirety. We then irrigated out the subcutaneous tissue layer above the fascia with approximately 1 L of normal saline. Meticulous hemostasis was ensured. I then opened up the fascial incision. There was a hematoma noted underneath the fascia which was evacuated out. I took 1 culture swab of this hematoma fluid. The sciatic nerve was identified and protected throughout the case. Charnley retractor was placed. Antibiotic beads placed at his operation 3 days ago were identified. The PDS suture used to repair the posterior capsule was also removed to expose the joint. I then irrigated out the wound with another 2 L of normal saline. Most of the stimulant beads were removed as a result of suctioning out the irrigation fluid. Next the hip was atraumatically dislocated and the femoral head was carefully tamped off of the trunnion using a bone tamp. This was inspected and there was minimal damage to the femoral head therefore I elected to clean this and reinserted at the end of the case. The femoral head was allowed to soak on the back table and dilute Betadine solution it was then scrubbed with Betadine soaked sponge. The exposed metal on the femoral neck and the trunnion were then scrubbed with a Betadine scrub brush. The acetabulum was then exposed. The metal shell and the polyethylene liner were in good condition. I then scrubbed these with the sponge soaked in Betadine solution. At this point dilute Betadine solution was used to irrigate out the entirety of the wound and allowed to sit for 3 minutes. A new set of stimulan beads was made on the back table containing 240 g of gentamicin and 1 g of vancomycin. The Betadine solution was then suctioned out of the wound and the wound was copiously irrigated with another 3 L of normal saline with 1 g of cefazolin diluted in it. The posterior hip capsule was then repaired with #1 PDS suture through his previously made bone tunnels. At this point the wound was completely dry and the new stimulan beads were placed below the fascia around the hip. The fascia was then closed using a running #1 looped PDS suture. The subcutaneous layer was closed using a running #1 PDS. The skin was closed with 2-0 Prolene using horizontal mattress sutures. A new Prevena wound VAC was applied and placed to suction. Patient was then carefully rolled supine extubated and transferred recovery room in stable condition. Postoperative course: Patient will continue on IV antibiotics per the recommendations of infectious diseases and pharmacy. He had a PICC line placed this morning and is likely looking at at least 6 weeks of IV antibiotics. We will also plan on at least 6 weeks of oral rifampin given that this is a hardware associated infection. We will continue aspirin for DVT prophylaxis. Weightbearing as tolerated with posterior hip precautions. I attest to the content of the Intraoperative Record and any orders documented therein. Any exceptions are noted below.
--- NOTE | 2022-04-22 15:40 | Anesthesiology Progress Note ---
Date of Service April 22, 2022 Anesthesia Post Procedure Vital Signs Vital Signs: Temp Pulse Pulse Resp BP BP Pulse Ox 04/22/22 15:30 97.5 F L 63 18 144/72 H 100 04/22/22 15:20 61 18 141/70 H 97 04/22/22 15:10 61 18 144/72 H 100 04/22/22 15:00 60 18 147/76 H 100 04/22/22 14:50 64 18 161/71 H 99 04/22/22 14:44 97.2 F L 66 18 162/73 H 97 04/22/22 12:18 98.2 F 72 20 173/74 H 100 04/22/22 07:15 97.9 F 73 14 128/76 95 04/21/22 20:15 04/21/22 22:12 98.1 F 68 18 148/90 H 95 O2 Del Method O2 Flow Rate 04/22/22 15:30 Room Air 04/22/22 15:20 Room Air 04/22/22 15:10 Oxymask 3 04/22/22 15:00 Oxymask 3 04/22/22 14:50 Oxymask 5 04/22/22 14:44 Oxymask 5 04/22/22 12:18 Room Air 04/22/22 07:15 Room Air 04/21/22 20:15 Room Air 04/21/22 22:12 Room Air Pain Intensity Left Hip: Pain Intensity: 0 Transfer of Care Handoff Completed per policy Notes Mental Status: alert / awake / arousable and participated in evaluation Patient Amnestic to Procedure: Yes Nausea / Vomiting: adequately controlled Pain: adequately controlled Airway Patency, RR, SpO2: stable & adequate BP & HR: stable & adequate Hydration State: stable & adequate Anesthetic Complications: no major complications apparent and Pt Satisfied with anesthetic care
--- NOTE | 2022-04-22 15:46 | XRay Report ---
XR pelvis 1-2V routine CLINICAL HISTORY: Postop pelvic surgery. COMPARISON STUDY: Pelvis 04/19/2022. FINDINGS: There is again noted a left total hip arthroplasty. The hardware is intact. No fracture or dislocation within the pelvis or hips. Small amount of gas within the soft tissues lateral to the lef t hip remains unchanged. Antibiotic cement beads surrounding the left hip are again noted. There is a stimulator device overlying the right hip. IMPRESSION: Postoperative changes again noted within the left hip. ACT 112: Negative or not required by law. Electronically signed by: Yohan Wade M.D. 04/22/2022 3:45 PM
[2022-04-22] MEDS: SODIUM CHLORIDE 0.9% 1000ML 1,000 ML IV SCH (16:29)
[2022-04-22] MEDS: KETOROLAC TROMETHAMINE 15 MG/ML VIAL IV SCH ×2 (16:35→20:15)
[2022-04-22] MEDS: AMPICILLIN 2,000 MG in SODIUM CHLOR 0.9% AD-VAN 100 ML IV SCH ×2 (16:45→20:12)
[2022-04-22] MEDS: OMEGA-3 (PURIFIED FISH OIL) 1 GM CAP PO SCH (20:14)
[2022-04-22] MEDS: LOSARTAN POTASSIUM 25 MG TAB PO SCH (20:16)
[2022-04-22] MEDS: ROSUVASTATIN CALCIUM 10 MG TAB PO SCH (20:17)
[2022-04-22] MEDS: SENNA 8.6 MG TAB PO SCH (20:18)
[2022-04-22] MEDS ORDERED: TRANEXAMIC ACID / 0.7% NACL 1,000 MG/100 ML BAG IV SCH (21:00)
[2022-04-22] MEDS ORDERED: DOCUSATE SODIUM 100 MG CAP PO SCH (21:00)
[2022-04-22] MEDS ORDERED: NON-FORMULARY MEDICATION (Cranberry 500 mg Capsule) PO SCH (21:00)
[2022-04-22] MEDS ORDERED: APPLE CIDER VINEGAR 600 MG PO SCH (21:00)
[2022-04-22] MEDS ORDERED: NON-FORMULARY MEDICATION (Coenzyme Q10 [Co Q-10] 100 mg Capsule) PO SCH (21:00)
[2022-04-22] MEDS ORDERED: SENNA 8.6 MG TAB PO SCH (21:00)
[2022-04-22] MEDS ORDERED: ACETAMINOPHEN 500 MG TAB PO SCH ×2 (22:00)
[2022-04-23] MEDS: SODIUM CHLORIDE 0.9% 1000ML 1,000 ML IV SCH (01:09)
[2022-04-23] MEDS: AMPICILLIN 2,000 MG in SODIUM CHLOR 0.9% AD-VAN 100 ML IV SCH ×6 (01:09→20:50)
[2022-04-23] MEDS: KETOROLAC TROMETHAMINE 15 MG/ML VIAL IV SCH ×2 (03:30→07:59)
[2022-04-23] MEDS: ACETAMINOPHEN 500 MG TAB PO SCH ×3 (06:03→21:00)
[2022-04-23 07:09] LABS: Basophils # (auto) 0.04 K/uL (0-0.2); Basophils % (auto) 0.4 %; Eosinophils # (auto) 0.41 K/uL (0-0.50); Eosinophils % (auto) 4.4 %; Hematocrit (blood only) 24.7 % (40.1-51.0); Hemoglobin 7.8 g/dl (14.0-18.0); Immature Granulocytes # (auto) 0.09 K/uL (0.00-0.02); Mean Corpuscular Hemoglobin 29.8 pg (25.0-34.0); Mean Corpuscular Hgb Conc 31.6 g/dL (32.0-36.0); Mean Corpuscular Volume 94.3 fL (80.0-100.0); Mean Platelet Volume 9.1 fL (9.4-12.4); Monocytes # (auto) 0.84 K/uL (0.24-0.82); Monocytes % (auto) 9.1 %; Neutrophils # (auto) 6.68 K/uL (1.4-6.5); Neutrophils % (auto) 72.1 %; Platelet Count 280 K/uL (130-400); RDW Coefficient of Variation 13.8 % (11.5-14.5); RDW Standard Deviation 47.1 fL (36.4-46.3); Red Blood Count 2.62 M/uL (4.63-6.08); White Blood Count 9.26 K/ul (4.8-10.8)
[2022-04-23 07:37] LABS: BUN Creatinine Ratio 16.3 (10-20); Calcium 8.6 mg/dl (8.5-10.1); Est GFR (African American) 102.5 ml/min; Est GFR (Non-African American) 88.5 ml/min; Potassium 4.3 mmol/L (3.5-5.1)
[2022-04-23 07:38] LABS: Polychromasia 1+; Toxic Granulation 1+; Toxic Vacuolation 1+
[2022-04-23] MEDS: CYANOCOBALAMIN (B-12) 500 MCG TABLET PO SCH (07:58)
[2022-04-23] MEDS: allopurinoL 100 MG TAB PO SCH (07:58)
[2022-04-23] MEDS: FERROUS GLUCONATE 324 MG TAB PO SCH ×2 (07:58→16:35)
[2022-04-23] MEDS: DOCUSATE SODIUM 100 MG CAP PO SCH ×2 (07:58→20:56)
[2022-04-23] MEDS: ASPIRIN 81 MG ECTAB PO SCH (07:58)
[2022-04-23] MEDS: CHOLECALCIFEROL 5,000 UNITS 125 MCG TAB PO SCH (07:58)
[2022-04-23] MEDS: MULTIVITAMIN TAB PO SCH (07:58)
[2022-04-23] MEDS: ASCORBIC ACID 500 MG TAB PO SCH ×2 (07:58→16:35)
[2022-04-23] MEDS: ZINC SULFATE 220 MG CAPSULE PO SCH (07:58)
[2022-04-23] MEDS: rifAMPin 300 MG CAPSULE PO SCH ×2 (07:59→20:57)
[2022-04-23] MEDS ORDERED: NON-FORMULARY MEDICATION (Multivitamin Tablet) PO SCH (09:00)
[2022-04-23] MEDS ORDERED: MULTIVITAMIN TAB PO SCH (09:00)
--- NOTE | 2022-04-23 10:18 | Orthopedic Progress Note ---
Date of Service April 23, 2022 Assessment & Plan (1) Wound infection, posttraumatic: Plan: Patient's hemoglobin is currently 7.8 and his hematocrit is 24.7. He has been transfused twice since his initial admission action on Tuesday. At this point he is asymptomatic so we will hold on any further transfusions. Weightbearing as tolerated with walker assistance Ernestine will be in place for the next 7 days Ice with easy wrap PT/OT Total hip precautions Abduction pillow use x6 weeks postoperatively Awaiting infectious disease consultation PICC line in place. IV antibiotics with ampicillin and p.o. with rifampin Once infectious disease sees the patient and provides the recommendations we will discuss discharge planning with him. (2) Status post total hip replacement, left: Admission and Anticipated Discharge Date Admission Date: April 19, 2022 Subjective This 71-year-old male seen today after his second set irrigation and debridement for Enterococcus infection involving his left hip status post total hip arthroplasty. On Tuesday Jonathan had a Romero exchange and placement of a new ceramic head. He has been on IV vancomycin and Zosyn along with oral rifampin. We took him back to the operating room yesterday and did another washout but did not exchange any of the orthopedic hardware. We did discontinue the vancomycin and Zosyn and now have him on IV ampicillin running through his PICC line. We will plan on sending him home once he meets with infectious disease we have a recommendation. I advised him that we will probably have him receive the ampicillin running continuously through his PICC line over 24-hour. For the next several weeks. Overall he states he is doing very well today. He states that he has been able to transition from his bed to the bathroom several times. He has no problems voiding. He denies chest pain, shortness of breath, fever, chills, sweats, lethargy or numbness or tingling in his right lower extremity. He states that the ampicillin did not make him nauseous. Patient is very anxious to be discharged home, but I advised him that this will depend on when he is able to meet with ID. Review of Systems Review of Systems: All systems reviewed & are unremarkable except as noted in HPI & below Physical Exam Physical Exam: Left hip: Prevena is in place clean dry and intact. There is no drainage in his canister. Patient is able to perform an active straight leg raise test. He is able to actively dorsi and plantarflex his foot. He tolerates a passive flexion to 90 degrees as well as passive internal and external hip rotation without pain. His quad strength 3+ out of 5. He is neurovascularly intact in left lower extremity. Results & Data ([facility]) Vital Signs (Past 12 Hours) Vital Signs Temp Pulse Resp BP BP Pulse Ox O2 Del Method 04/23/22 07:38 36.8 C 64 18 135/69 95 Room Air 04/23/22 03:00 37.1 C 63 16 111/62 92 Room Air 04/22/22 22:46 36.7 C 51 L 16 126/64 94 Room Air Diagnostic Findings Laboratory Results WBC 9.26 K/ul (4.8-10.8) 04/23/22 06:15 RBC 2.62 M/uL (4.63-6.08) L 04/23/22 06:15 Hgb 7.8 g/dl (14.0-18.0) L 04/23/22 06:15 Hct 24.7 % (40.1-51.0) L 04/23/22 06:15 MCV 94.3 fL (80.0-100.0) 04/23/22 06:15 MCH 29.8 pg (25.0-34.0) 04/23/22 06:15 MCHC 31.6 g/dL (32.0-36.0) L 04/23/22 06:15 RDW Std Deviation 47.1 fL (36.4-46.3) H 04/23/22 06:15 RDW Coeff of Dimple 13.8 % (11.5-14.5) 04/23/22 06:15 Plt Count 280 K/uL (130-400) 04/23/22 06:15 MPV 9.1 fL (9.4-12.4) L 04/23/22 06:15 Immature Gran % (Auto) 1.0 % 04/23/22 06:15 Neut % (Auto) 72.1 % 04/23/22 06:15 Lymph % (Auto) 13.0 % 04/23/22 06:15 Andrew % (Auto) 9.1 % 04/23/22 06:15 Eos % (Auto) 4.4 % 04/23/22 06:15 Baso % (Auto) 0.4 % 04/23/22 06:15 Neut # (Auto) 6.68 K/uL (1.4-6.5) H 04/23/22 06:15 Lymph # (Auto) 1.20 K/uL (1.2-3.4) 04/23/22 06:15 Andrew # (Auto) 0.84 K/uL (0.24-0.82) H 04/23/22 06:15 Eos # (Auto) 0.41 K/uL (0-0.50) 04/23/22 06:15 Baso # (Auto) 0.04 K/uL (0-0.2) 04/23/22 06:15 Immature Gran # (Auto) 0.09 K/uL (0.00-0.02) H 04/23/22 06:15 Toxic Granulation 1+ 04/23/22 06:15 Toxic Vacuolation 1+ 04/23/22 06:15 Polychromasia 1+ 04/23/22 06:15 ESR 63 mm/hr (0-20) H 04/20/22 07:12 Sodium 138 mmol/L (136-145) 04/23/22 06:15 Potassium 4.3 mmol/L (3.5-5.1) 04/23/22 06:15 Chloride 106 mmol/L (98-107) 04/23/22 06:15 Carbon Dioxide 27 mmol/L (21-32) 04/23/22 06:15 Anion Gap 5 (3-11) 04/23/22 06:15 BUN 14 mg/dl (6-23) 04/23/22 06:15 Creatinine 0.86 mg/dl (0.6-1.4) 04/23/22 06:15 Est Cr Clr Drug Dosing 106.0 ml/min 04/23/22 06:15 Est GFR ( Amer) 102.5 ml/min 04/23/22 06:15 Est GFR (Non-Af Amer) 88.5 ml/min 04/23/22 06:15 BUN/Creatinine Ratio 16.3 (10-20) 04/23/22 06:15 Glucose 100 mg/dl (70-99(Fasting)) H 04/23/22 06:15 Calcium 8.6 mg/dl (8.5-10.1) 04/23/22 06:15 C-Reactive Protein 3.99 mg/dl (0-0.5) H 04/20/22 07:12 Vancomycin Trough < 3.0 mcg/ml (10-20) L 04/21/22 12:43 Random Vancomycin 15.1 mcg/ml (10-20) 04/21/22 22:23 Blood Type O Positive 04/19/22 17:10 Antibody Screen NEGATIVE 04/19/22 17:10 Crossmatch See Detail 04/19/22 17:10 Impressions Pelvis X-Ray 04/22/22 14:37 XR pelvis 1-2V routine CLINICAL HISTORY: Postop pelvic surgery. COMPARISON STUDY: Pelvis 04/19/2022. FINDINGS: There is again noted a left total hip arthroplasty. The hardware is intact. No fracture or dislocation within the pelvis or hips. Small amount of gas within the soft tissues lateral to the left hip remains unchanged. Antibiotic cement beads surrounding the left hip are again noted. There is a stimulator device overlying the right hip. IMPRESSION: Postoperative changes again noted within the left hip. ACT 112: Negative or not required by law. Electronically signed by: Yohan Wade M.D. 04/22/2022 3:45 PM
[2022-04-23] MEDS: OMEGA-3 (PURIFIED FISH OIL) 1 GM CAP PO SCH (20:56)
[2022-04-23] MEDS: LOSARTAN POTASSIUM 25 MG TAB PO SCH (20:57)
[2022-04-23] MEDS: ROSUVASTATIN CALCIUM 10 MG TAB PO SCH (20:58)
[2022-04-23] MEDS: SENNA 8.6 MG TAB PO SCH (20:58)
[2022-04-24] MEDS: AMPICILLIN 2,000 MG in SODIUM CHLOR 0.9% AD-VAN 100 ML IV SCH ×5 (00:43→15:43)
[2022-04-24] MEDS: ACETAMINOPHEN 500 MG TAB PO SCH ×2 (05:17→13:53)
[2022-04-24] MEDS: ZINC SULFATE 220 MG CAPSULE PO SCH (08:23)
[2022-04-24] MEDS: rifAMPin 300 MG CAPSULE PO SCH (08:23)
[2022-04-24] MEDS: ASPIRIN 81 MG ECTAB PO SCH (08:24)
[2022-04-24] MEDS: MULTIVITAMIN TAB PO SCH (08:24)
[2022-04-24] MEDS: CYANOCOBALAMIN (B-12) 500 MCG TABLET PO SCH (08:24)
[2022-04-24] MEDS: CHOLECALCIFEROL 5,000 UNITS 125 MCG TAB PO SCH (08:24)
[2022-04-24] MEDS: DOCUSATE SODIUM 100 MG CAP PO SCH (08:24)
[2022-04-24] MEDS: ASCORBIC ACID 500 MG TAB PO SCH ×2 (08:25→16:05)
--- NOTE | 2022-04-24 08:31 | Orthopedic Progress Note ---
Date of Service April 24, 2022 Assessment & Plan (1) Wound infection, posttraumatic: Plan: Continue IV ampicillin and oral rifampin for 6 weeks. Weekly labs: CBC, CMP, ESR, CRP Weightbearing as tolerated with walker assistance. Posterior hip precautions Prevena will be in place for the next 7 days Ice with easy wrap PT/OT Abduction pillow use x6 weeks postoperatively Discharge home today with home health Follow-up next week for Prevena wound vac change in my office. (2) Status post total hip replacement, left: Admission and Anticipated Discharge Date Admission Date: April 19, 2022 Subjective This 71-year-old male seen today POD 2 following second irrigation and debridement for Enterococcus infection involving his left hip status post total hip arthroplasty. Continues on IV ampicillin running through his PICC line and oral rifampin. Seen by infectious disease yesterday late afternoon. They recommend 6 weeks IV ampicillin and oral rifampin, followed by oral amoxicillin indefinitely. He has not had any side effects from the ampicillin in spite of his documented amoxicillin allergry. He states that he has been able to gonzalez sition from his bed to the bathroom several times. No lightheadedness and vitals fine despite his low hemoglobin. He has no problems voiding. He denies chest pain, shortness of breath, fever, chills, sweats, lethargy or numbness or tingling in his right lower extremity. Patient is very anxious to be discharged home. Physical Exam Physical Exam: A&O x 3, well appearing L hip: Prevena wound vac in place, functioning appropriately, minimal drainage in canister. Results & Data ([facility]) Vital Signs (Past 12 Hours) Vital Signs Temp Pulse Resp BP Pulse Ox O2 Del Method 04/24/22 07:03 36.8 C 77 16 127/69 94 Room Air 04/23/22 20:56 Room Air 04/23/22 22:40 36.9 C 72 18 178/64 H 96 Room Air
--- NOTE | 2022-04-24 08:42 | Discharge Summary ---
Date of Service April 24, 2022 Admission HPI Per Admitting Provider Jonathan is seen back for his left hip. We have been following him for a traumatic wound dehiscence secondary to a fall sustained about 10 days after surgery. He was seen in the Emergency Room by my partner at that time, who performed a bedside irrigation and wound closure. He has been on oral antibiotics since that time, doing dressing changes. He has not had any fevers or chills. He says his hip feels great. However, despite the oral antibiotics, he has continued to have drainage from the wound. He has also started to develop some faint redness around the wound, which he believes is secondary to the tape. He came in this morning for a wound check after they sent some pictures that showed some hypertrophic granulation tissue bubbling up at the distal aspect of the wound. 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 Discharge Data Allergies Allergy/AdvReac Type Severity Reaction Status Date / Time amoxicillin AdvReac Mild N/V Verified 04/19/22 14:48 Consultations 04/19/22 20:42 Consult Infectious Diseases Routine Procedures Performed Operation Date: 04/19/22 11:35 Actual Procedures s Irrigation and Debridement of Left Hip Wound.(Left) - Jeff Nguyen MD p Hip Left Polyethylene Exchange(Left) - Jeff Nguyen MD Operation Date: 04/22/22 12:55 Actual Procedures p Repeat Irrigation and Debridement Left Hip Wound(Left) - Jeff Nguyen MD Hospital Course (1) Wound infection, posttraumatic: Patient taken to operating room on 19 April 2022 for I&D, poly exchange. Admitted on broad spectrum antibiotics. Blood cultures negative, so PICC line placed. Wound cultures grew jacobs sensitive enterococcus. Seen by ID who recommended IV ampicillin and oral rifampin for 6 weeks. Did well with PT/OT after both surgeries. Pain well controlled. Tolerating oral diet. Discharge plan: IV ampicillin and oral rifampin for 6 weeks Weekly labs: CBC, CMP, ESR, CRP Weightbearing as tolerated with walker assistance. Posterior hip precautions Prevena will be in place for the next 7 days Ice with easy wrap PT/OT Abduction pillow use x6 weeks postoperatively Discharge home today with home health Follow-up next week for Prevena wound vac change in my office. (2) Status post total hip replacement, left: Total Time Total Time Spent Total Time Spent (In Minutes): 45 minutes Discharge Plan Discharge Items Patient Disposition: Home - Home Health Services Reason For Visit: Disruption Traumatic Injury Wound Repair Initial Discharge Diagnosis: Wound disruption s/p total hip arthroplasty Activity: As commented below Lifting: None Bathing: Keep incision dry Bathing Comment: May shower tomorrow Sexual Activity: Wait until after follow-up appointment Exercise/Sports: Wait until after follow-up appointment Driving/Machine Use: No driving until cleared by investigation specialist Weightbearing: Left weightbearing Weightbearing Comment: as tolerated with walker assistance Non-emergency contact: Surgeon Call non-emergency contact if: you have any medication questions, your pain is worsening, your temperature is above 101.5, your wound has increased drainage and your wound pain has increased Follow-up/Referrals: Alfonzo Bose PA-C [Physician Welding Production Supervisor] - 04/28/22 1:30 pm Francis Ny MD [Primary Care Provider] - Diet: Regular Addtl Attending Provider Instructions: Post-operative Instructions Dear Patient and Family/Friends, Before you are discharged from the hospital, it is important to know what to expect when you get home after surgery. To that end, we have created this sheet of discharge instructions which covers many commonly asked questions. Make sure you go through this sheet in its entirety with your nurse before you are discharged. Please note that we will go over the specifics of your surgery and recovery when you return for your first post-operative visit. Sincerely, Dr. Nguyen Pain Expect to be in a fair amount of pain after surgery. Remember, our goal is not to eliminate your pain, but to make it tolerable. It is a good idea to stay ahead of your pain by taking the medications you were prescribed once you get home. Typically, the pain starts improving 3-7 days after surgery. You should start weaning off the narcotic pain medication (oxycodone, hydrocodone, hydromorphone, morphine) as soon as your pain improves. Please call our office if your pain is not adequately controlled. Ice Ice your operative site at least 5 times a day for 15-30 minutes at a time. Make sure you have a thin cloth between the ice or cooling unit and your skin to prevent ontiveros bite. This is especially important if you received a nerve block. Continue icing your operative site for the first 5-7 days after surgery, then as needed. Diet/Nausea/Vomiting Start by drinking clear liquids and eating crackers. If you can tolerate this, then you may resume your normal diet. If you feel nauseated or vomit, take Zofran/ondansetron (if prescribed). Please call our office if you have intractable nausea or vomiting, or, if after hours, you may go to the Emergency Room for help. Constipation Constipation is a common side effect of narcotic pain medication. If you have not had a bowel movement within 2 days after surgery, we recommend purchasing an over the counter laxative such as Milk of Magnesia, Dulcolax, or Miralax from a local pharmacy, and taking it as instructed. Call our clinic if any questions. Slings and Braces If you were placed in a sling or brace, it must be worn at all times, including sleep. You may remove your sling or brace for physical therapy, home exercises, and showering. The length of time you will be in your brace and range of motion restrictions depends on what surgery you had; these details will be reviewed at your first post-operative appointment. Nerve block The anesthesia team sometimes places a nerve block to help with post-operative pain control. This results in significant numbness and inability to move the extremity. The nerve block usually wears off in 8-12 hours, but sometimes can last up to 24 hours. Please call our office if you are still unable to move your extremity after 24 hours, unless you received a pain pump to take home. Nerve blocks typically wear off quickly, so start taking pain medication as soon as you start feeling soreness near your surgical site. Weight bearing and Range of Motion. Do not bear any weight through your operative extremity immediately after surgery. If you had upper extremity surgery, do not lift anything with that arm. If you are in a knee brace, keep it locked in place until your follow-up. We will discuss your weight bearing, range of motion, and lifting restrictions in detail at your first post-operative appointment. Continuous Passive Motion (CPM) Machine If you were prescribed a CPM machine, it will start after your first post- operative appointment, at which time we will give you instructions on the range of motion settings and duration of treatment Physical therapy You will be given a prescription for physical therapy or occupational therapy at your first post-operative appointment. Typically, patients start therapy within 1 week of surgery Wound care and showering We will inspect your wound at your first post-operative visit, and may do a dressing change at that time. Most patients will be in a water-proof dressing that is removed 14 days after surgery. It is normal to see some dried blood on the dressing. Do not remove your dressing, paper strips or sutures yourself unless you are given permission. Showering is allowed the day after surgery. Do not scrub or remove any dressings. The wound should not be submerged underwater (i.e. in a bathtub or pool) until 4 weeks after surgery EMILY stockings If you were given white stockings, these are to be worn at all times except to shower (on both legs) for the first 2 weeks after surgery. Driving You may not drive while taking narcotic pain medication or while in a cast, splint, sling or brace. You, the patient, need to make the final determination about when you are safe to drive, however, the earliest you may consider driving after surgery is below: Hand/Wrist/Elbow Surgery: 3 days Shoulder Surgery: 2 weeks Hip,/Knee/Ankle Surgery: 4 weeks Fracture repair: 6 weeks Return to Work Your return to work depends on what surgery was done and what type of work you do. Please bring any paperwork your employer needs completed to your first post-operative visit. Also, bring a description of your job duties, as this helps us to understand what risks you may face at work. Travel Avoid long distance travel (greater than 1 hour) in airplanes and cars for the first 6 weeks after surgery. If you must travel, you need to have a Doppler ultrasound done before you travel to rule out a blood clot in your legs. Follow-up You should have a follow-up appointment already scheduled 1-2 days after surgery. If not, please contact our office to make this appointment before you leave the hospital. When to call the office It is normal to have swelling and bruising in the limb that was operated on. This will improve with time. It is also normal to have fevers for the first 2 days after surgery. Reasons you should call your doctor include: Uncontrolled pain; Nausea, vomiting, or constipation that does not improve with medication; Fevers over 101.5, chills, sweats; Drainage or bleeding from the wound; Foul odor; Spreading areas of redness; Any other concerns Follow up in the office on 04-28 at 130 with DJ for wound vac removal Pending Studies at Discharge: No Stand-Alone Forms: My [facility], Smoking Cessation Medications and DC Order Prescriptions: New rifampin 300 mg Capsule 300 mg PO BID 42 Days Qty: 84 0RF Continued multivitamin Tablet 1 tab PO QAM zinc 100 mg Tablet 50 mg PO QAM allopurinol 100 mg Tablet 100 mg PO QAM garlic 1,000 mg Capsule 1,000 mg PO PM cyanocobalamin (vitamin B-12) 500 mcg Tablet 500 mcg PO QAM apple cider vinegar 600 mg Capsule 1,200 mg PO BID losartan 25 mg Tablet 25 mg PO PM cranberry 500 mg Capsule 500 mg PO PM coenzyme Q10 [Co Q-10] 100 mg Capsule 100 mg PO PM omega-3 fatty acids Capsule 1,000 mg PO PM rosuvastatin [Crestor] 10 mg Tablet 10 mg PO PM cholecalciferol (vitamin D3) [Vitamin D3] 125 mcg (5,000 unit) Tablet 125 mcg PO QAM acetaminophen [Tylenol Extra Strength] 500 mg Tablet 1,000 mg PO Q8 Qty: 30 0RF oxycodone 5 mg Tablet 5 mg PO Q4H PRN (Reason: pain) Qty: 18 0RF diclofenac sodium 75 mg tablet,delayed release (DR/EC) 75 mg PO BID PRN (Reason: pain) Qty: 28 1RF Rx Instructions: TAKE THIS MED WITH FOOD Changed aspirin 81 mg Tablet,Chewable 81 mg PO BID 30 Days Qty: 60 0RF Discontinued cephalexin [Keflex] 500 mg Capsule 500 mg PO TID Discharge Orders: Discharge Order (Routine); Ordered 04/24/22 Ordered By: Jeff Nguyen Admission Data Admit Date/Time: 04/19/22 18:22 Attending Provider: Jeff Nguyen Admit Provider: Jeff Nguyen Primary Care Provider: Francis Ny Other Providers: [facility],[employer] ; Grant Nair ; Jorge Alberto Posada ; Fritz Garcia I. ; Dominik Razo II ; Cheryl Salcido ; Vincenzo Ritchie ; Bro Watson
[2022-04-24] MEDS: FERROUS GLUCONATE 324 MG TAB PO SCH ×2 (09:29→16:06)
[2022-04-24] MEDS: allopurinoL 100 MG TAB PO SCH (09:29)
== END 2022-04-24 17:04 | disposition home health service (06) | DRG 908 ==
LOC: ASU 14:31 → 3W 18:22
PROC: M.IDHIP (2022-04-19 11:35)